=== PATIENT | female | born 1970 | race Caucasian/White ===

== ENCOUNTER 2022-10-03 07:05 | Inpatient (IN) | payer OTHER, SELFPAY ==
[2022-10-03] VITALS (10 sets, daily range): BP systolic 141–219; BP diastolic 81–130; PULSE 68–98; RESP 16–20; TEMP 36.4–36.9; O2SAT 96–98; BMI 38.0
--- NOTE | 2022-10-03 07:24 | PC.NURSE ---
pt hesitant to walk back to ER room. offered pt wheelchair, pt declined. Pt remains tearful, stating she wants to go home. pt remains cooperative and walked back to room with emotional support from her .
--- NOTE | 2022-10-03 07:37 | XR_ITS ---
WS: [id number] Portable AP upright chest, 10/03/2022 Clinical Data: chesst pain Comparison: None. Findings: No nodules, masses or effusions are seen. The heart is normal. The pulmonary vascularity is not increased. No pneumonia or pneumothorax is seen. The aortic arch and descending thoracic aorta s how mild tortuosity. XR/XR chest 1V portable 42241 Impression: Atherosclerosis.
--- NOTE | 2022-10-03 07:38 | ECG_ITS ---
[facility] Test Date: 2022-10-03 Pat Name: Noy Linares Department: Room: Gender: Female Unit Director: : 1970 Requested By: Michelet Ramirez Order Number: [id number] Pedro MD: Vanda Anderson M.D. Measurements Intervals [place] Rate: 57 P: 36 VA: 177 QRS: 26 QRSD: 89 T: 93 QT: 418 QTc: 407 Interpretive Statements SINUS BRADYCARDIA WITH OCCASIONAL SUPRAVENTRICULAR PREMATURE COMPLEXES NONSPECIFIC T-WAVE ABNORMALITY No previous ECG available for comparison Electronically Signed On 10-03-2022 16:55:10 DRIER AND EVAPORATOR OPERATOR by Vanda Anderson M.D. [id number]
--- NOTE | 2022-10-03 07:58 | ED.C_ITS ---
HPI - Psych General: Chief Complaint: ER Hold Stated Complaint: MHE Time Seen by Provider: 10/03/22 07:23 Source: patient Mode of arrival: ambulatory History of Present Illness: 52-year-old female presents emergency room complaining of anxiety. She arrives tearful. She was started yesterday I will I believe the Lexapro for anxiety. She took 1 dose last night. She feels frustrated and feels like a failure he has not wanted to engage outside of her house. She feels like she has not done a good job of taking care of her home. She had suicidal thoughts of hanging herself. She not previously been hospitalized. Years ago she was treated for hypertension and anxiety and was on medications but does not recall what they were she stopped them. [place] like she no longer needed them. Her mentioned there is been some other issues with her feeling depressed her parents had in the last couple of years which is very difficult for her. He also mentions several years ago she had a seizure-like activity and sounds like that may have been ultimately thought to be an anxiety attack rather than actual seizure but he is not completely clear. Patient is agreeable to hospitalization if needed. MD complaint: suicidal ideation and feels depressed Onset (ago): week(s) Duration: constant History of same: Yes Relieving factors: none Exacerbating factors: none Associated psychiatric symptoms: depression and suicidal ideation Associated symptoms: Reports depression and suicidal ideation Treatments prior to arrival: none If self harm: admits thoughts of self harm and has plan Review of Systems Const: Denies: fever(s), chills, body aches, change in appetite, fatigue or malaise ENMT: Denies: throat pain, ear or mastoid pain, nasal discharge or nasal congestion Card: Denies: chest pain, palpitations, irregular heart rhythm, edema, dyspnea on exertion or orthopnea Resp: Denies: dyspnea, productive cough or non-productive cough GI: Denies: abdominal pain, nausea, vomiting, hematemesis, coffee ground emesis, diarrhea, constipation, bloating, hematochezia or melena : Denies: flank pain, difficulty voiding, dysuria, urinary frequency or urinary urgency Skin/Breast: Denies: rash or pruritus Neuro: Denies: headache(s) Psych: Reports: anxiety, depression and suicidal ideation [facility] ED PFSH: Medical History (Updated 10/09/22 @ 13:52 by CHAZ Bryan ITCD) Generalized anxiety disorder HTN (hypertension) Hypertensive urgency Social History Smoking and tobacco status: never smoked Alcohol intake: never Physical Exam Const: COMMON NORMALS: no acute distress GENERAL APPEARANCE: cooperative and comfortable ORIENTATION/CONSCIOUSNESS: Yes awake, Yes oriented to person, Yes oriented to place and Yes oriented to time HENMT: COMMON NORMALS: normocephalic, atraumatic and hearing grossly normal bilaterally HEAD & SCALP: normocephalic and atraumatic Resp: COMMON NORMALS: normal respiratory effort, No retractions, No use of accessory muscles and clear to auscultation bilaterally AUSCULTATION: clear to auscultation bilaterally Cardio: COMMON NORMALS: regular rate, regular rhythm and No murmurs present (Cardio) RATE: regular rate RHYTHM: regular rhythm GI: COMMON NORMALS: Soft to palpation and No hepatosplenomegaly present AUSCULTATION: Yes normoactive bowel sounds PALPATION: Yes Soft to palpation, No Tenderness to palpation present (GI), No Guarding due to palpation present (GI) and Yes No hepatosplenomegaly present Extremity: COMMON NORMALS: normal to inspection, capillary refill normal, no clubbing, cyanosis or edema, no calf tenderness and no pedal edema Neuro: SENSORIUM/ORIENTATION: Yes oriented to person, Yes oriented to place and Yes oriented to time Skin: COMMON NORMALS: no rashes or lesions noted GENERAL SKIN EXAM: no rashes or lesions noted Course Vital Signs: Vital signs: Vital Signs Temperature 98.3 F 10/08/22 04:00 Pulse Rate 68 10/08/22 10:47 Respiratory Rate 17 10/08/22 10:47 Blood Pressure 155/94 10/08/22 10:47 Pulse Oximetry 95 10/08/22 10:47 Oxygen Delivery Me thod 10/08/22 04:00 MDM - Psych Medical Decision Making Patient given hydralazine and amlodipine for blood pressure. Basic labs completed. Discussed with the patient her condition she has a plan and recently has started on Lexapro discussed with Dr. Long he concurs will admit for suicidal ideation. May need consultation for blood pressure management will continue to observe blood pressure in the emergency room before she goes to the floor. Patient started on amlodipine and lisinopril at the time of admission. Medical Records I reviewed the patient's medical records. Lab Data I reviewed the patient's lab results. 10/08/22 05:16 10/08/22 09:09 Radiology Impressions Chest X-Ray 10/03/22 07:37 Impression: Atherosclerosis. Discharge Plan Discharge Patient Disposition: Admitted As Inpatient Admit Provider: Chance Long Clinical Impression: Generalized anxiety disorder, Suicidal ideation, HTN (hypertension) Condition: Stable Discharge Diet: As Directed Discharge Activity: Resume usual activity Coding Level of Care Code ED Magnaflux Operator for Chg Fwd Exam Detailed
[2022-10-03 08:57] LABS: Basophils # 0.1 10^3/uL (0.0-0.1); Basophils % 0.4 %; Eosinophils % 0.3 %; Hematocrit 42.2 % (37.0-47.0); Hemoglobin 13.2 g/dL (11.5-15.3); Lymphocytes # 1.1 10^3/uL (0.8-4.8); Lymphocytes % 8.1 %; Mean Corpuscular HGB Conc 31.3 g/dL (30.0-36.0); Mean Corpuscular Hemoglobin 26.8 pg (28.0-34.0); Mean Corpuscular Volume 85.8 fl (81-99); Monocytes % 7.3 %; Neutrophils # 11.26 10^3/uL (1.8-7.7); Neutrophils % 83.5 %; Nucleated Red Blood Cells % 0 %; Platelet Count 390 10^3/cmm (130-400); Red Blood Count 4.92 10^6/uL (4.1-5.3); White Blood Count 13.5 10^3/uL (4.0-10.0)
[2022-10-03] MEDS: hyDRALAzine 20 mg/mL INJ 1 mL IVP (09:01)
[2022-10-03] MEDS: amlodipine 10 mg Tablet PO (09:01)
[2022-10-03 09:15] LABS: Alanine Aminotransferase 33 U/L (0-33); Albumin Level 4.3 g/dL (3.5-5.2); Alkaline Phosphatase 104 U/L (35-105); Anion Gap 14.7 (5-19); Aspartate Amino Transferase 27 U/L (0-32); Blood Urea Nitrogen 13 mg/dL (6-20); Calcium 9.5 mg/dL (8.5-10.5); Carbon Dioxide 24 mmol/L (22-29); Chloride 104 mmol/L (98-107); Creatinine Clr Calc Pharmacy 151.8839; Globulin 3.7 g/dL (1.3-4.6); Glomerular Filtration Rate 129.6 mL/min (90-130); Glucose 105 mg/dL (65-115); Osmolality Calculated 288 mOsm/kg (285-295); Potassium 3.7 mmol/L (3.5-5.1); Sodium 139 mmol/L (136-145); Total Bilirubin 0.4 mg/dL (0.15-1.2)
[2022-10-03 09:16] LABS: Troponin(5th) Baseline 8 ng/L (0-10)
--- NOTE | 2022-10-03 09:43 | ECG_ITS ---
[facility] Test Date: 2022-10-03 Pat Name: Noy Linares Department: Room: Gender: Female Setter Machine: : 1970 Requested By: Michelet Ramirez Order Number: [id number] Pedro MD: Vanda Anderson M.D. Measurements Intervals [place] Rate: 77 P: 42 CO: 160 QRS: 49 QRSD: 92 T: 32 QT: 398 QTc: 451 Interpretive Statements SINUS RHYTHM NONSPECIFIC T-WAVE ABNORMALITY Compared to ECG 10/03/2022 08:17:27 Sinus bradycardia no longer present T-wave abnormality still present Electronically Signed On 10-03-2022 17:02:29 COLOR STRAINER by Vanda Anderson M.D. [id number]
[2022-10-03 11:18] LABS: Troponin 5 2HR 8.63 ng/L (0-10)
[2022-10-03 12:12] LABS: Troponin 5 2HR Delta 0.63 ABS# (0-10)
[2022-10-03] MEDS: enalaprilat 1.25 mg/mL Inj IVP (12:44)
[2022-10-03] MEDS: labetalol 5 mg/mL SDV 20mL 10 MG IVP (12:44)
[2022-10-03] MEDS: LORazepam 2 mg/mL INJ 1 mL IVP (13:53)
[2022-10-03 15:37] LABS: Troponin 5 6HR 12.88 ng/L (0-10)
[2022-10-03 15:44] LABS: Troponin 5 6HR Delta 4.88 ng/L (0-12)
[2022-10-03] MEDS: trazodone 50 mg Tablet PO (19:33)
[2022-10-03] MEDS: escitalopram 10 mg Tablet PO (19:33)
[2022-10-03] MEDS: metoprolol succinate ER (24 HR) 25 mg Tablet PO (19:34)
[2022-10-04 02:56] VITALS: BP 167/95; PULSE 76; RESP 18; TEMP 36.6; O2SAT 97
[2022-10-04] MEDS: loperamide 2 mg Capsule PO (06:41)
[2022-10-04] MEDS: amlodipine 10 mg Tablet PO (08:46)
[2022-10-04] MEDS: lisinopril 20 mg Tablet PO (08:46)
--- NOTE | 2022-10-04 13:07 | W.PM.NPUH&PS ---
Providers/Chief Complaint Admitting Physician: Chance Long MD Primary Care Provider: FRANCES Hudson Chief Complaint: MHE HPI NPU History of Present Illness Noy Linares is a 52 year old female who presented to the emergency department with the following report: Chief Complaint: Psychiatric Symptoms Stated Complaint: MHE Time Seen by Provider: 10/03/22 07:23 Source: patient Mode of arrival: ambulatory History of Present Illness: 52-year-old female presents emergency room complaining of anxiety. She arrives tearful. She was started yesterday I will I believe the Lexapro for anxiety. She took 1 dose last night. She feels frustrated and feels like a failure he has not wanted to engage outside of her house. She feels like she has not done a good job of taking care of her home. She had suicidal thoughts of hanging herself. She not previously been hospitalized. Years ago she was treated for hypertension and anxiety and was on medications but does not recall what they were she stopped them. [place] like she no longer needed them. Her mentioned there is been some other issues with her feeling depressed her parents had in the last couple of years which is very difficult for her. He also mentions several years ago she had a seizure-like activity and sounds like that may have been ultimately thought to be an anxiety attack rather than actual seizure but he is not completely clear. Patient is agreeable to hospitalization if needed. complaint: suicidal ideation and feels depressed Onset (ago): week(s) Duration: constant History of same: Yes Relieving factors: none Exacerbating factors: none Associated psychiatric symptoms: depression and suicidal ideation Associated symptoms: Reports depression and suicidal ideation Treatments prior to arrival: none If self harm: admits thoughts of self harm and has plan. The patient was admitted to the neuropsychiatric unit for definitive treatment of those issues. She is currently taking an anti anxiety and her blood pressure medication. She presents today reporting she was feeling ?consumed? and overwhelmed. She has never been psychiatrically hospitalized, has went to Behavioral Health once in her life, and has been on some psychiatric medication. She denies tobacco, alcohol, marijuana or any other illicit drug use. She has never had drug and alcohol treatment or drug and alcohol related charges. She reports she has had similar rough times around when her son was first born over 30 years ago and when she lost both parents in a car accident with symptoms of feelings of helplessness, hopelessness, worthlessness, problems with sleeping, and suicidal ideation. She endorses worrying about her children and grandchildren in a normal way and denies any issues with social anxiety. She denies any repetitive behaviors. She endorses some symptoms of PTSD. Of her outpatient evaluation from [facility] from 2009 is included below for context and historical data. Psychiatric History: As above. Substance Abuse History: As above. Family History: She reports mental health issues on her father?s side of the family, addiction issues with her brother, and denies any suicide attempts or completions on either side of the family. Developmental History: She denies any issues with her or , learned to walk and talk and met her developmental milestones on time and denies any need for speech therapy, learning support, emotional support or special education classes. Psychosocial History: She reports her parents were together when she was born and remained together until they passed. She had 5 siblings of whom one passed who are products of the same union. She described her childhood as fairly good and denies emotional, physical or sexual abuse. She denies CYS involvement. She denies any other traumatic events. She graduated high school. She endorses being heterosexual with her longest relationship being 34 years. She has been once, has 3 children, has never been in the and endorses being rastafari. 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 She currently lives in a house with her . Legal History: Denied. Medical History: She is allergic to penicillin and latex. She denies any medical issues. She is beginning menopause. Per her 01/24/2010 [facility] outpatient psychiatric evaluation: Time: In- 1015 Out- 1045 Identification: Noy is a [age] year old white female who was seen after referral from her primary provider, Dr. Romero and initial assessment. Informants: Noy is seen with her [id number] and records are reviewed. Chief Complaint: ?I get shaky when I cut my meds down?. History: Noy is reporting that she has been having increased anxiety. She gets feeling shaky, worried and finding herself having episodes where she is unable to manage. She has had to stop work after being able to manage for over ten years. She reports some stressors including being changed to nightshift and her now being an over the road wireless sales consultant that keeps him away from home longer periods of time. She reports she has tried Prozac and bupropion without benefit. She has had Ativan which has been increased now to 1 mg four times a day. She states that when she is not getting a dose, she will have some shakiness physically. She is also reporting some medical symptoms including a history of anemia, although she is not sure what her levels were. She states she did have a normal thyroid, but she is complaining with her hair coming out easily. No report of significant skin changes. Past History: No prior psychiatric hospitalizations. She was seen once psychiatrically when her parents , but reports she was able to work through those issues. Medical History: Allergies reported to hepatitis B injections, as well as penicillin and latex. Currently she is denying having any acute medical problems or taking medical medications. She does report an approximate forty-three pound weight loss without attempting to lose weight. Family History: Medical history for high blood pressure. Her current blood pressure is reported approximately 133/88. Psychiatric history was denied. Addictive Behavior/Dependence: No history of abuse or dependence of prescription medications, substances or alcohol. Abusive/Traumatic Circumstances: None reported. Psychosocial: Childhood- She was born in [place] and raised in [place]. Her parents returned to [place] when she was a senior. They are currently . She has two brothers and one sister. She describes family relationships as ?MMK?. Environment and Home- Currently lives with her spouse and children, one who is out working and two are finishing high school. She reports housing is adequate. Activities of Daily Living- She is able to care for herself and manage her funds. Family Circumstances- She has some concerns as one child has diabetes and is gone as noted. Social and Peer Groups- She states she has lots of people and friends that she talks to. Sexual Orientation- Heterosexual by report. Educational- Graduated high school. Extra Curricular- None. Quaker and Spiritual- She states none. Leisure and Recreational- She states none at this time. Financial- Incomes is from salary she had been getting and reports was adequate. 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. She is having some struggle with a claims supervisor, but has been at the job for ten years. - None. Legal- None. Meds NPU Home Medications Medication Instructions Recorded Confirmed Last Taken Type hydroxyzine HCl 25 mg tablet 25 mg PO Q8H PRN anxiety #30 tabs 09/25/22 10/03/22 Unknown Rx aspirin-caffeine 845 mg-65 mg oral 1 ea PO DAILY PRN Headache 10/03/22 10/03/22 Unknown History powder packet (BC Pain Relief) escitalopram oxalate 10 mg tablet 10 mg PO BEDTIME 10/03/22 10/03/22 10/02/22 History first dose metoprolol succinate 25 mg 25 mg PO BEDTIME 10/03/22 10/03/22 10/02/22 20:00 History tablet,extended release 24 hr first dose of 25mg Allergies Allergy/AdvReac Type Severity Reaction Status Date / Time Latex, Natural Rubber Allergy ALGY-Rash Verified 10/03/22 08:21 Penicillins Allergy ALGY-Hives Verified 10/03/22 08:21 HEPATITIS C VACCINE Allergy Intermediate ALGY-Rash Uncoded 09/25/22 18:13 PFSH NPU PFSH: Medical History (Updated 10/05/22 @ 08:36 by Chance Long MD) Generalized anxiety disorder HTN (hypertension) Social History (Updated 10/03/22 @ 08:02 by Michelet Romero DO) Smoking and tobacco status: never smoked Alcohol intake: never Mental Status Exam MSE Comments: This is an overweight versus obese white female with thinning hair in hospital scrubs with adequate grooming and limited eye contact. No abnormal movements except for mild psychomotor retardation. Cooperative with exam in mild distress. Speech was normal rate and volume. Mood described as good, affect is congruent. Thought process, organized. Thought content: patient denies suicidal or homicidal ideation, no delusions reported or noted and denies any auditory or visual hallucinations. Attention and concentration are intact and memory appeared reliable but none were formally tested. She is alert and oriented times three. Insight and judgment are fair. Impulse control is fair. Vitals/I&O/Wt Last Vital Signs Temp 98 F 10/04/22 13:59 Pulse 79 10/04/22 13:59 Resp 16 10/04/22 13:59 BP 129/74 10/04/22 13:59 Pulse Ox 99 10/04/22 13:59 O2 Del Method 10/04/22 13:59 Weight last 48 hrs Weight 100.698 kg Data NPU 10/03/22 08:47 10/03/22 08:47 A&P Assessment and plan (1) Generalized anxiety disorder: (2) HTN (hypertension): (3) Suicidal ideation: (4) Adjustment disorder with mixed disturbance of emotions and conduct: Plan This is a 52 year old woman with a history of depression related to significant moments in her life and genetic loading for mental health issues who presents with recent depression and suicidal ideation reporting she is doing better and open to changes in her medication at this time. 1. Continue current medications 2. Encourage individual, group and milieu therapy 3. Continue q-15 minute check for safety 4. We will get collateral information from family and consider discharge tomorrow given she is not on a hold if she continues to endorse wanting to leave. Involuntary Hold Information 96 Hour Hold: 96 Hour Involuntary Admission: No Attestations NPU Medical Necessity Statement*: Inpatient hospitalization is medically necessary and the clinically appropriate intervention at this time. We will monitor medications and make changes as indicated. Patient will be in the hospital for over two midnights. Likely length of stay is 2-4 days. However patient expressing interest in discharge and will evaluate for safety. Coding Level of Care Code Acute Wheel Polisher for Chg Fwd Diagnoses Generalized anxiety disorder F41.1 HTN (hypertension) I10 Suicidal ideation R45.851 Adjustment disorder with mixed disturbance of emotions and conduct F43.25
[2022-10-04 13:59] VITALS: BP 129/74; PULSE 79; RESP 16; TEMP 36.6; O2SAT 99
[2022-10-04] MEDS: escitalopram 10 mg Tablet PO (20:28)
[2022-10-04] MEDS: metoprolol succinate ER (24 HR) 25 mg Tablet PO (20:28)
[2022-10-04 20:34] VITALS: BP 164/101; PULSE 82; RESP 18; TEMP 36.7; O2SAT 95
[2022-10-05] MEDS: lisinopril 20 mg Tablet PO (07:54)
[2022-10-05] MEDS: amlodipine 10 mg Tablet PO (07:54)
[2022-10-05 14:00] VITALS: BP 172/98; PULSE 82; RESP 18; TEMP 36.6; O2SAT 96
--- NOTE | 2022-10-05 19:15 | P.NPUPN_ITS ---
Subjective NPU Subjective: Patient presented today reporting that she felt like she would probably be good at home. Her came in and were able to talk about his take on the situation as well as what resources they had in place. We agreed that the benefit of having the treatment team get connected with resources and make sure she had appointments will be quite valuable and so she agreed that she would stay an additional day. Mental Status Exam MSE Comments: This is an overweight versus obese white female with thinning hair in hospital scrubs with adequate grooming and limited eye contact. No abnormal movements except for mild psychomotor retardation. Cooperative with exam in mild distress. Speech was normal rate and volume. Mood described as good, affect is congruent, but anxious. Thought process, organized. Thought content: patient denies suicidal or homicidal ideation, no delusions reported or noted and denies any auditory or visual hallucinations. Attention and concentration are intact and memory appeared reliable but none were formally tested. She is alert and oriented times three. Insight and judgment are fair. Impulse control is fair. Vitals/I&O/Wt Last Vital Signs Temp 98.4 F 10/05/22 19:25 Pulse 78 10/05/22 19:25 Resp 18 10/05/22 19:25 BP 184/128 10/05/22 19:25 Pulse Ox 97 10/05/22 19:25 O2 Del Method 10/04/22 13:59 Weight last 48 hrs Weight 101.151 kg Data NPU 10/03/22 08:47 10/03/22 08:47 A&P Assessment and plan (1) Generalized anxiety disorder: (2) HTN (hypertension): (3) Suicidal ideation: (4) Adjustment disorder with mixed disturbance of emotions and conduct: Plan This is a 52 year old woman with a history of depression related to significant moments in her life and genetic loading for mental health issues who presents with recent depression and suicidal ideation reporting she is doing better and open to changes in her medication at this time. 1. Continue current medications 2. Encourage individual, group and milieu therapy 3. Continue q-15 minute check for safety 4. We will get connected with outpatient resources and likely discharge tomorrow. 5. If blood pressure stays elevated may get consult prior to discharge. Involuntary Hold Information 96 Hour Hold: 96 Hour Involuntary Admission: No Attestations NPU Medical Necessity Statement*: Inpatient hospitalization is medically necessary and the clinically appropriate intervention at this time. We will monitor medications and make changes as indicated. Likely length of stay is 1-3 days. Coding Level of Care Code Acute Process Supervisor for Chg Fwd Diagnoses Generalized anxiety disorder F41.1 HTN (hypertension) I10 Suicidal ideation R45.851 Adjustment disorder with mixed disturbance of emotions and conduct F43.25
[2022-10-05] MEDS: metoprolol succinate ER (24 HR) 25 mg Tablet PO (19:21)
[2022-10-05] MEDS: escitalopram 10 mg Tablet PO (19:21)
[2022-10-05 19:25] VITALS: BP 184/128; PULSE 78; RESP 18; TEMP 36.9; O2SAT 97
[2022-10-05 20:32] VITALS: BP 187/102
[2022-10-05 20:56] VITALS: BP 187/102
[2022-10-05] MEDS: cloNIDine 0.1 mg Tablet PO (20:56)
--- NOTE | 2022-10-05 21:01 | PC.NURSE ---
At 1924, Pt noted with BP of 184/128. HS meds of Toprol XL 25mg given. Recheck at 2031 of 187/102. Dr Long notified and orders received for Clonidine 0.1mg Q4H PRN systolic>160/dystolic>100. Also order for hospitalist consult for high blood pressures. Attempt to contact Dr Lawson X2 made.
[2022-10-05 22:00] VITALS: BP 172/94
--- NOTE | 2022-10-05 22:00 | PC.NURSE ---
recheck of pt's BP, resulted of 172/94.
[2022-10-06] VITALS (11 sets, daily range): BP systolic 151–196; BP diastolic 82–133; PULSE 77–82; RESP 16; TEMP 36.8; O2SAT 94–98
[2022-10-06] MEDS: cloNIDine 0.1 mg Tablet PO (03:09)
--- NOTE | 2022-10-06 03:10 | PC.NURSE ---
pt noted with BP of 196/133, clonidine 0.1mg po given.
--- NOTE | 2022-10-06 04:18 | PC.NURSE ---
BP rechecked, 167/82 at this time.
[2022-10-06 06:01] LABS: Amphetamines Screen Urine Negative (Negative); Barbiturates Screen Urine Negative (Negative); Benzodiazepines Screen Urine Negative (Negative); Cocaine Screen Urine Negative (Negative); Opiate Screen Urine Negative (Negative); PCP Screen Urine Negative (Negative); THC Screen Urine Negative (Negative)
[2022-10-06] MEDS: lisinopril 20 mg Tablet PO ×2 (08:22→11:24)
[2022-10-06] MEDS: hyDRALAzine 25 mg Tablet PO (08:22)
[2022-10-06] MEDS: amlodipine 10 mg Tablet PO (08:22)
--- NOTE | 2022-10-06 11:23 | PM.CONSULT ---
Providers/Reason For Consult Consulting Physician/Specialty*: Hospitalist Reason for Consult*: Hypertension Attending Physician: Chance Long MD Primary Care Provider: FRANCES Hudson History of Present Illness History of Present Illness Noy Linares is a 52 year old female who presents stress unit, does not take anything for her blood pressure at home, hospital service has been requested to optimize antihypertensive regimen before her discharge. Patient is stating that she does have a distal blood pressure cuff but she is not sure whether it is working properly, when I asked her what is she takes for her blood pressure she stated weed sometimes. No previous history of coronary disease, CHF, thyroid abnormalities, drug screen negative Currently she is getting amlodipine, lisinopril, hydralazine I have added hydrochlorothiazide Blood pressure has been fluctuating between 151 to 185mmhg that might delay discharge from the unit Review of Systems Const: Denies: fever(s) Eyes: Denies: change in vision ENMT: Denies: throat pain Card: Denies: chest pain Resp: Denies: dyspnea GI: Denies: abdominal pain : Denies: flank pain Musc: Denies: neck pain Skin/Breast: Denies: rash Neuro: Denies: headache(s) Psych: Denies: anxiety Endo: Denies: polyuria Jovanny/Lymph: Denies: easy bruising All/Imm: Denies: urticaria Medications/Allergies Home Medications Medication Instructions Recorded Confirmed Last Taken Type hydroxyzine HCl 25 mg tablet 25 mg PO Q8H PRN anxiety #30 tabs 09/25/22 10/03/22 Unknown Rx aspirin-caffeine 845 mg-65 mg oral 1 ea PO DAILY PRN Headache 10/03/22 10/03/22 Unknown History powder packet (BC Pain Relief) amlodipine 10 mg tablet 10 mg PO DAILY #30 tabs 10/06/22 Unknown Rx escitalopram oxalate 10 mg tablet 10 mg PO BEDTIME 30 days #30 tabs 10/06/22 Unknown Rx hydralazine 25 mg tablet 25 mg PO BID #60 tabs 10/06/22 Unknown Rx hydrochlorothiazide 25 mg tablet 25 mg PO QAM #30 tabs 10/06/22 Unknown Rx lisinopril 20 mg tablet 40 mg PO DAILY #60 tabs 10/06/22 Unknown Rx metoprolol succinate 25 mg 25 mg PO BEDTIME 30 days #30 tabs 10/06/22 Unknown Rx tablet,extended release 24 hr Allergies Allergy/AdvReac Type Severity Reaction Status Date / Time Latex, Natural Rubber Allergy ALGY-Rash Verified 10/03/22 08:21 Penicillins Allergy ALGY-Hives Verified 10/03/22 08:21 HEPATITIS C VACCINE Allergy Intermediate ALGY-Rash Uncoded 09/25/22 18:13 Current Medications Generic Name Dose Route Start Last Admin Trade Name Freq PRN Reason Stop Dose Admin Amlodipine Besylate 10 mg 10/04/22 09:00 10/06/22 08:22 Amlodipine 10 Mg Tablet PO 10 mg DAILY HAYDEE Administration Escitalopram Oxalate 10 mg 10/03/22 21:00 10/05/22 19:21 Escitalopram 10 Mg Tablet PO 10 mg BEDTIME HAYDEE Administration Hydralazine HCl 25 mg 10/06/22 09:00 10/06/22 08:22 Hydralazine 25 Mg Tablet PO 25 mg TID HAYDEE Administration Lisinopril 20 mg 10/06/22 09:00 10/06/22 08:22 Lisinopril 20 Mg Tablet PO 20 mg DAILY HAYDEE Administration Loperamide HCl 2 mg 10/03/22 15:00 10/04/22 06:41 Loperamide 2 Mg Capsule PO 2 mg Q6H PRN Administration DIARRHEA Metoprolol Succinate 25 mg 10/03/22 21:00 10/05/22 19:21 Metoprolol Succinate Er (24 Hr) 25 Mg Tablet PO 25 mg BEDTIME HAYDEE Administration Trazodone HCl 50 mg 10/03/22 15:00 10/03/22 19:33 Trazodone 50 Mg Tablet PO 50 mg BEDTIME PRN Administration SLEEP PFSH Acute PFSH: Medical History Generalized anxiety disorder HTN (hypertension) Social History Smoking and tobacco status: never smoked Alcohol intake: never Female Reproductive History: Date of last menstrual period: 04/28/22 Vitals/I&O/Wt Last Vital Signs Temp 98.2 F 10/06/22 03:05 Pulse 77 10/06/22 03:05 Resp 16 10/06/22 03:05 BP 151/84 10/06/22 10:35 Pulse Ox 94 10/06/22 03:05 O2 Del Method 10/04/22 13:59 Weight last 48 hrs Weight 101.151 kg Physical Exam Narrative: Morbid obese female Unkept appearance Awake and alert Nonfocal neuro exam S1, S2 No audible stridor or wheezing Pleasant and cooperative No sign of cellulitis Calm Data 10/03/22 08:47 10/03/22 08:47 A&P Assessment and plan (1) Adjustment disorder with mixed disturbance of emotions and conduct: (2) Suicidal ideation: (3) Generalized anxiety disorder: (4) HTN (hypertension): Plan Hypertensive urgency Stage III hypertension She will need at least 3-4 antihypertensive regimen including a diuretic I would recommend amlodipine 10 mg, chlorthalidone, lisinopril, hydralazine, metoprolol, hydralazine 50 mg 3 times a day Requested TSH, drug screen negative She will need close PCP follow-up appointment Will follow along Consult Attestations Medical Necessity Statement: As per stress unit Time Spent in Patient Care: 30 Coding Level of Care Code Acute Clinical Resource Manager for Casandra Fwd Diagnoses Adjustment disorder with mixed disturbance of emotions and conduct F43.25 Suicidal ideation R45.851 Generalized anxiety disorder F41.1 HTN (hypertension) I10
[2022-10-06] MEDS: hydroCHLOROthiazide 25 mg Tablet PO (11:24)
[2022-10-06] MEDS: hyDRALAzine 25 mg Tablet 50 MG PO ×2 (14:39→19:50)
[2022-10-06] MEDS: chlorthalidone 25 mg Tablet PO (14:39)
--- NOTE | 2022-10-06 18:58 | P.NPUPN_ITS ---
Subjective NPU Subjective: Patient presented today with continued improvement in her mood. She continues to report that she is adjusting well to the medication. However unfortunately her blood pressures continue to be problematic. The hospitalist who continue to consult expressed concern about her blood pressure is going back in the 180s. We discussed the medication adjustments that were made and a desire to have her blood pressures in the 150s or lower prior to discharge was which were not met and additional medication adjustments were made to her blood pressure medications and we will focus on hopefully tomorrow for discharge. We discussed the fact that her blood pressures have likely been running like this while she is at home and this is very dangerous. Mental Status Exam MSE Comments: This is an overweight versus obese white female with thinning hair in hospital scrubs with adequate grooming and limited eye contact. No abnormal movements except for mild psychomotor retardation. Cooperative with exam in mild distress. Speech was normal rate and volume. Mood described as good, affect is congruent, but anxious. Thought process, organized. Thought content: patient denies suicidal or homicidal ideation, no delusions reported or noted and denies any auditory or visual hallucinations. Attention and con centration are intact and memory appeared reliable but none were formally tested. She is alert and oriented times three. Insight and judgment are fair. Impulse control is fair. Vitals/I&O/Wt Last Vital Signs Temp 98.3 F 10/06/22 20:41 Pulse 82 10/06/22 20:41 Resp 16 10/06/22 20:41 BP 163/96 10/06/22 20:41 Pulse Ox 98 10/06/22 20:41 O2 Del Method 10/04/22 13:59 Data NPU 10/03/22 08:47 10/03/22 08:47 A&P Assessment and plan (1) Generalized anxiety disorder: (2) HTN (hypertension): (3) Suicidal ideation: (4) Adjustment disorder with mixed disturbance of emotions and conduct: Plan This is a 52 year old woman with a history of depression related to significant moments in her life and genetic loading for mental health issues who presents with recent depression and suicidal ideation reporting she is doing better and open to changes in her medication at this time. 1. Continue current medications 2. Encourage individual, group and milieu therapy 3. Continue q-15 minute check for safety 4. We will get connected with outpatient resources and likely discharge tomorrow. 5. Appreciate hospitalists consult and will follow directions as far as safety for discharge given her elevated blood pressures. Hospitalist making adjustments as indicated for hypertensive control. Involuntary Hold Information 96 Hour Hold: 96 Hour Involuntary Admission: No Attestations NPU Medical Necessity Statement*: Inpatient hospitalization is medically necessary and the clinically appropriate intervention at this time. We will monitor medications and make changes as indicated. Likely length of stay is 1-2 days. Coding Level of Care Code Acute Unified Communications Engineer for g Fwd Diagnoses Generalized anxiety disorder F41.1 HTN (hypertension) I10 Suicidal ideation R45.851 Adjustment disorder with mixed disturbance of emotions and conduct F43.25
[2022-10-06] MEDS: escitalopram 10 mg Tablet PO (19:50)
[2022-10-06] MEDS: metoprolol succinate ER (24 HR) 25 mg Tablet PO (19:51)
[2022-10-07] VITALS (10 sets, daily range): BP systolic 114–184; BP diastolic 75–119; PULSE 81–100; RESP 15–17; TEMP 36.3–36.7; O2SAT 97–98
[2022-10-07] MEDS: hyDRALAzine 25 mg Tablet 50 MG PO ×2 (04:40→09:11)
[2022-10-07] MEDS: chlorthalidone 25 mg Tablet PO (09:08)
[2022-10-07] MEDS: lisinopril 20 mg Tablet 40 MG PO (09:08)
[2022-10-07] MEDS: amlodipine 10 mg Tablet PO (09:08)
--- NOTE | 2022-10-07 09:17 | PC.NURSE ---
Orders received to increase pt's hydralazine to 100 mg po TID. casino shift manager staff had given the pt's 0900 dose of hydralazine early due to pt's elevated bp. Pt received an additional 50 mg Hydralazine to equal 100 mg for the 0900 dose. Clarified this with Dr. Long prior to giving it.
--- NOTE | 2022-10-07 09:33 | PC.NURSE ---
Dr. Causey notified of pt's continued elevated bp. Medications reviewed including AM meds given including the additional 50 mg Hydralazine to equal 100 mg total for 0900 dose as pt had already received 50 mg Hydralazine at 0447. Informed Dr. Long would also be contacting him. Dr. Causey said if pt's blood pressure remained elevated at noon, he would consider moving her to med-surg.
--- NOTE | 2022-10-07 10:29 | PC.NURSE ---
Received orders for Spironolactone 50 mg po daily. BP checked prior to giving it. 137/[address] Causey notified. Instructed to hold the spironolactone for now. Recheck bp at noon and 2pm. If bp remains elevated, transfer pt to med-surg. If okay, can discharge. Pt and Dr. Long notified.
--- NOTE | 2022-10-07 10:50 | PC.NURSE ---
Pt's bp at 0855: right arm 178/105 with 91 pulse; left arm 175/119 with 86 pulse.
--- NOTE | 2022-10-07 11:28 | PM.PN ---
Subjective Subjective: Patient started experiencing dizziness when her blood pressure was around 130s hence decision was made to monitor her blood pressure on [facility] Vitals/I&O/Wt Last Vital Signs Temp 97.4 F L 10/07/22 04:42 Pulse 100 10/07/22 10:15 Resp 16 10/07/22 04:42 BP 137/81 10/07/22 10:15 Pulse Ox 98 10/07/22 04:42 O2 Del Method 10/04/22 13:59 Physical Exam Narrative: Awake and alert Nonfocal neuro exam EOMI, PERRLA GCS 15 Pleasant cooperative Pleasant cooperative S1, S2 Morbidly obese On room air Abdomen soft Data 10/03/22 08:47 10/03/22 08:47 A&P Assessment and plan (1) Hypertensive urgency: (2) Adjustment disorder with mixed disturbance of emotions and conduct: (3) Suicidal ideation: (4) Generalized anxiety disorder: (5) HTN (hypertension): Plan Hypertensive urgency Patient was hypertensive this morning however after getting a.m. antihypertensive regimen blood pressure dropped down to 137/[address] Long to transfer this patient to [facility] if by 2:00 she remains hypertensive, otherwise I do believe she will need some time to reach good levels and her serum of all antitussive regimen we have recommended, she can follow-up with PCP and get discharged today from the stress unit if by noon blood pressure remained stable In case she remains hypertensive I will admit to [facility] add spironolactone and treat for resistant hypertension Attestations Medical Necessity Statement*: Continue medical management Time Spent in Patient Care: 15 Coding Level of Care Code Acute Equipment Specialist for g Fwd Diagnoses Hypertensive urgency I16.0 Adjustment disorder with mixed disturbance of emotions and conduct F43.25 Suicidal ideation R45.851 Generalized anxiety disorder F41.1 HTN (hypertension) I10
--- NOTE | 2022-10-07 11:53 | W.PM.NPUDCS ---
Diagnoses at Discharge Discharge Diagnosis (1) Generalized anxiety disorder: Status: Acute (2) HTN (hypertension): Status: Acute (3) Suicidal ideation: Status: Resolved (4) Adjustment disorder with mixed disturbance of emotions and conduct: Status: Acute Reason for Visit Reason for Visit: MHE Brief History: History of Present Illness Noy Linares is a 52 year old female who presented to the emergency department with the following report: Chief Complaint: Psychiatric Symptoms Stated Complaint: MHE Time Seen by Provider: 10/03/22 07:23 Source: patient Mode of arrival: ambulatory History of Present Illness: 52-year-old female presents emergency room complaining of anxiety. She arrives tearful. She was started yesterday I will I believe the Lexapro for anxiety. She took 1 dose last night. She feels frustrated and feels like a failure he has not wanted to engage outside of her house. She feels like she has not done a good job of taking care of her home. She had suicidal thoughts of hanging herself. She not previously been hospitalized. Years ago she was treated for hypertension and anxiety and was on medications but does not recall what they were she stopped them. [place] like she no longer needed them. Her mentioned there is been some other issues with her feeling depressed her parents had in the last couple of years which is very difficult for her. He also mentions several years ago she had a seizure-like activity and sounds like that may have been ultimately thought to be an anxiety attack rather than actual seizure but he is not completely clear. Patient is agreeable to hospitalization if needed. MD complaint: suicidal ideation and feels depressed Onset (ago): week(s) Duration: constant History of same: Yes Relieving factors: none Exacerbating factors: none Associated psychiatric symptoms: depression and suicidal ideation Associated symptoms: Reports depression and suicidal ideation Treatments prior to arrival: none If self harm: admits thoughts of self harm and has plan. The patient was admitted to the neuropsychiatric unit for definitive treatment of those issues. She is currently taking an anti anxiety and her blood pressure medication. She presents today reporting she was feeling ?consumed? and overwhelmed. She has never been psychiatrically hospitalized, has went to Behavioral Health once in her life, and has been on some psychiatric medication. She denies tobacco, alcohol, marijuana or any other illicit drug use. She has never had drug and alcohol treatment or drug and alcohol related charges. She reports she has had similar rough times around when her son was first born over 30 years ago and when she lost both parents in a car accident with symptoms of feelings of helplessness, hopelessness, worthlessness, problems with sleeping, and suicidal ideation. She endorses worrying about her children and grandchildren in a normal way and denies any issues with social anxiety. She denies any repetitive behaviors. She endorses some symptoms of PTSD. Of her outpatient evaluation from [facility] from 2009 is included below for context and historical data. Psychiatric History: As above. Substance Abuse History: As above. Family History: She reports mental health issues on her father?s side of the family, addiction issues with her brother, and denies any suicide attempts or completions on either side of the family. Developmental History: She denies any issues with her or , learned to walk and talk and met her developmental milestones on time and denies any need for speech therapy, learning support, emotional support or special education classes. Psychosocial History: She reports her parents were together when she was born and remained together until they passed. She had 5 siblings of whom one passed who are products of the same union. She described her childhood as fairly good and denies emotional, physical or sexual abuse. She denies CYS involvement. She denies any other traumatic events. She graduated high school. She endorses being heterosexual with her longest relationship being 34 years. She has been once, has 3 children, has never been in the and endorses being confucianism. 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 She currently lives in a house with her . Legal History: Denied. Medical History: She is allergic to penicillin and latex. She denies any medical issues. She is beginning menopause. Per her 01/24/2010 [facility] outpatient psychiatric evaluation: Time: In- 1015 Out- 1045 Identification: Noy is a [age] year old white female who was seen after referral from her primary provider, Dr. Romero and initial assessment. Informants: Noy is seen with her [id number] and records are reviewed. Chief Complaint: ?I get shaky when I cut my meds down?. History: Noy is reporting that she has been having increased anxiety. She gets feeling shaky, worried and finding herself having episodes where she is unable to manage. She has had to stop work after being able to manage for over ten years. She reports some stressors including being changed to nightshift and her now being an over the road inside trucker that keeps him away from home longer periods of time. She reports she has tried Prozac and bupropion without benefit. She has had Ativan which has been increased now to 1 mg four times a day. She states that when she is not getting a dose, she will have some shakiness physically. She is also reporting some medical symptoms including a history of anemia, although she is not sure what her levels were. She states she did have a normal thyroid, but she is complaining with her hair coming out easily. No report of significant skin changes. Past History: No prior psychiatric hospitalizations. She was seen once psychiatrically when her parents , but reports she was able to work through those issues. Medical History: Allergies reported to hepatitis B injections, as well as penicillin and latex. Currently she is denying having any acute medical problems or taking medical medications. She does report an approximate forty-three pound weight loss without attempting to lose weight. Family History: Medical history for high blood pressure. Her current blood pressure is reported approximately 133/88. Psychiatric history was denied. Addictive Behavior/Dependence: No history of abuse or dependence of prescription medications, substances or alcohol. Abusive/Traumatic Circumstances: None reported. Psychosocial: Childhood- She was born in [place] and raised in [place]. Her parents returned to [place] when she was a senior. They are currently . She has two brothers and one sister. She describes family relationships as ?MMK?. Environment and Home- Currently lives with her spouse and children, one who is out working and two are finishing high school. She reports housing is adequate. Activities of Daily Living- She is able to care for herself and manage her funds. Family Circumstances- She has some concerns as one child has diabetes and is gone as noted. Social and Peer Groups- She states she has lots of people and friends that she talks to. Sexual Orientation- Heterosexual by report. Educational- Graduated high school. Extra Curricular- None. Alevism and Spiritual- She states none. Leisure and Recreational- She states none at this time. Financial- Incomes is from salary she had been getting and reports was adequate. Vocational- She worked in house keeping at [employer]. 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 - None. Legal- None. Hospital Course Hospital Course Patient slowly acclimated to the individual, group and milieu therapies provided.?She had significant stressors and depression when she presented. We monitored her as she had recent initiation of Lexapro 10 mg po q daily. She worked with the treatment team to find appropriate discharge options and follow-up. They were able to accomplish that. She had significant improvement during this admission and she was able to contract for safety, outside of the hospital prior to discharge.?? However her blood pressure was unmanageable and instead of discharge she was held an extra day, and with continued hypertension she was transferred to [facility]. With history as below per hospitalists. Per Hospitalist: Hospitalist service was consulted for hypertensive urgency management, patient was in neuropsychiatric unit for suicidal ideation generalized anxiety and adjustment disorder management. Her TSH is normal, patient has not taken any antihypertensive until this visit. Patient is stating that she was using weed to control her symptoms. Her blood pressure has been fluctuating between 150-190 mmHg, she was given optimal dose of amlodipine, lisinopril, metoprolol and thiazide. She was given hydralazine 100 mg 3 times a day as well which dropped her blood pressure to 130s which made her dizzy. No signs of stroke or press syndrome, she was monitored on [facility] for 1 extra day. She will need close follow-up with PCP for her hypertensive regimen optimization. I do believe with all the medications we are starting they will achieve optimal serum level in the next couple of days and help her control blood pressure her potassium has been normal. Discharge Summary: At the time of discharge, she denied psychosis or lethality.? Mood and anxiety were well managed.? Patient endorsed a plan to avoid all drugs of abuse and follow-up with the aftercare recommendations of the treatment team.? Patient was evaluated and deemed to be absent credible lethality, and was voluntary and no longer wanting inpatient hospitalization, so she was cleared for discharge to be determined by Hospitalist getting blood pressures under control. Involuntary Hold Information 96 Hour Hold: 96 Hour Involuntary Admission: No Mental Status Exam MSE Comments: This is an overweight versus obese white female with thinning hair in hospital scrubs with adequate grooming and limited eye contact. No abnormal movements except for mild psychomotor retardation. Cooperative with exam in mild distress. Speech was normal rate and volume. Mood described as good, affect is congruent, but anxious. Thought process, organized. Thought content: patient denies suicidal or homicidal ideation, no delusions reported or noted and denies any auditory or visual hallucinations. Attention and concentration are intact and memory appeared reliable but none were formally tested. She is alert and oriented times three. Insight and judgment are fair. Impulse control is fair. Discharge Data Studies Completed and Pending: Completed Studies During Hospitalization Category Date Time Status XR chest 1V antonio ble [id number] Stat Exams 10/03/22 07:37 Completed Radiology Impressions Chest X-Ray 10/03/22 07:37 Impression: Atherosclerosis. Laboratory Results WBC 13.5 10^3/uL (4.0 -10.0) H 10/03/22 08:47 RBC 4.92 10^6/uL (4.1 -5.3) 10/03/22 08:47 Hgb 13.2 g/dL (11.5-1 5.3) 10/03/22 08:47 Hct 42.2 % (37.0-47.0 ) 10/03/22 08:47 MCV 85.8 fl (81-99) 10/03/22 08:47 MCH 26.8 pg (28.0-34. 0) L 10/03/22 08:47 MCHC 31.3 g/dL (30.0-3 6.0) 10/03/22 08:47 RDW 15.0 % (12.1-15.1 ) 10/03/22 08:47 Plt Count 390 10^3/cmm (130 -400) 10/03/22 08:47 MPV 10.0 fL (7.4-10.4 ) 10/03/22 08:47 Neut % (Auto) 83.5 % 10/03/22 08:47 Lymph % (Auto) 8.1 % 10/03/22 08:47 [place] % (Auto) 7.3 % 10/03/22 08:47 Eos % (Auto) 0.3 % 10/03/22 08:47 Baso % (Auto) 0.4 % 10/03/22 08:47 Neut # (Auto) 11.26 10^3/uL (1. 8-7.7) H 10/03/22 08:47 Lymph # (Auto) 1.1 10^3/uL (0.8- 4.8) 10/03/22 08:47 [place] # (Auto) 1.0 10^3/uL (0.2- 0.9) H 10/03/22 08:47 Eos # (Auto) 0.0 10^3/uL (0.0- 0.8) 10/03/22 08:47 Baso # (Auto) 0.1 10^3/uL (0.0- 0.1) 10/03/22 08:47 Nucleated RBC % (a uto) 0 % 10/03/22 08:47 Nucleated RBCs # 0.0 /100WBC 10/03/22 08:47 Sodium 139 mmol/L (136-1 45) 10/03/22 08:47 Potassium 3.7 mmol/L (3.5-5 .1) 10/03/22 08:47 Chloride 104 mmol/L (98-10 7) 10/03/22 08:47 Carbon Dioxide 24 mmol/L (22-29) 10/03/22 08:47 Anion Gap 14.7 (5-19) 10/03/22 08:47 BUN 13 mg/dL (6-20) 10/03/22 08:47 Creatinine 0.5 mg/dL (0.5-0. 9) 10/03/22 08:47 GFR Calculation 129.6 mL/min (90- 130) 10/03/22 08:47 Glucose 105 mg/dL (65-115 ) 10/03/22 08:47 Calculated Osmolal ity 288 mOsm/kg (285- 295) 10/03/22 08:47 Calcium 9.5 mg/dL (8.5-10 .5) 10/03/22 08:47 Total Bilirubin 0.4 mg/dL (0.15-1 .2) 10/03/22 08:47 AST 27 U/L (0-32) 10/03/22 08:47 ALT 33 U/L (0-33) 10/03/22 08:47 Alkaline Phosphata se 104 U/L (35-105) 10/03/22 08:47 Troponin T Baselin e 8 ng/L (0-10) 10/03/22 08:47 Troponin T 120 Min cecil 8.63 ng/L (0-10) 10/03/22 10:47 Delta Troponin T 0.63 ABS# (0-10) 10/03/22 10:47 Troponin T Hi Sens 6Hr 12.88 ng/L (0-10) H 10/03/22 15:10 Troponin T Hi Sens 6Hr Delta 4.88 ng/L (0-12) 10/03/22 15:10 Total Protein 8.0 g/dL (6.6-8.7 ) 10/03/22 08:47 Albumin 4.3 g/dL (3.5-5.2 ) 10/03/22 08:47 Globulin 3.7 g/dL (1.3-4.6 ) 10/03/22 08:47 Vitals: Last Vital Signs Temp 98.1 F 10/04/22 20:34 Pulse 82 10/04/22 20:34 Resp 18 10/04/22 20:34 BP 164/101 10/04/22 20:34 Pulse Ox 95 10/04/22 20:34 O2 Del Method 10/04/22 13:59 Discharge Plan Discharge Patient Disposition: Home Condition: Stable Prescriptions: New hydrochlorothiazide 25 mg tablet 25 mg PO QAM Qty: 30 3RF lisinopril 20 mg tablet 40 mg PO DAILY Qty: 60 3RF amlodipine 10 mg tablet 10 mg PO DAILY Qty: 30 2RF hydralazine 25 mg tablet 25 mg PO BID Qty: 60 1RF Continued hydroxyzine HCl 25 mg tablet 25 mg PO Q8H PRN (Reason: anxiety) Qty: 30 0RF BC Pain Relief 845-65 mg Powder In Packet 1 ea PO DAILY PRN (Reason: Headache) escitalopram oxalate 10 mg tablet 10 mg PO BEDTIME 30 Days Qty: 30 1RF Changed metoprolol succinate 25 mg tablet extended release 24 hr 25 mg PO BEDTIME 30 Days Qty: 30 1RF Discharge Orders: Discharge Order (Routine); Ordered 10/08/22 Ordered By: Elijah Causey Referrals: [facility] [Outside] - 10/09/22 8:30 am (Initial assessment for services.) Magallon,FRANCES Padilla [Primary Care Provider] - 10/13/22 11:30 am Discharge Diet: As Directed Discharge Activity: Resume usual activity Patient Instructions: Lisinopril (By mouth), Hydrochlorothiazide (By mouth), Hydralazine (By mouth), Amlodipine (By mouth), Opioid Safety Discharge Attestations NPU Time Spent in Discharge Care*: less than 30 min Specific Discharge Activities: Specific discharge activities: educating patient, discussing with medical case manager/social workers/dc planners, documenting/other paperwork and evaluating patient/reviewing data Coding Level of Care Code Acute Chg FW DC note Diagnoses Generalized anxiety disorder F41.1 HTN (hypertension) I10 Suicidal ideation R45.851 Adjustment disorder with mixed disturbance of emotions and conduct F43.25
--- NOTE | 2022-10-07 11:58 | PC.NURSE ---
BP checked on pt's right arm. 146/95 with 87 pulse. Pt informed staff would check it again at 2PM. Pt reminded if bp continues to elevate, pt would need to be transferred to med-surg for further evaluation. Discussed with pt what med-surg meant. Pt offering no complaints at this time. Pt is hoping to go home at 3pm when comes for a visit.
--- NOTE | 2022-10-07 13:53 | PC.NURSE ---
At 1315 LIABILITY CLAIMS REPRESENTATIVE staff reported pt was found up and about in day room complaining of feeling lightheqaded. Staff encouraged pt to sit down. When staff returned with the blood pressure machine, the pt was found standing up again, still complaining of lightheadedness. BP 147/80 with 88 pulse. Pt was returned to her room and instructed to lay down on her bed for safety. Pt rested approximately 30 minutes and blood pressure checked again. 125/81 with 98 pulse. Pt said she still had some lightheadedness. Also said she thought she was going to throw up. Pt said she needed to use the bathroom. Pt had a bowel movement. Gagged a few times and then returned to her bed after taking her denture out. She said she was feeling a little better. Dr. Long notified. Attempted to reach Dr. Causey without success. Will try again.
--- NOTE | 2022-10-07 15:28 | PC.NURSE ---
Called Dr. Causey to clarify if he wanted pt to receive her 1500 hydralazine as ordered. Received order to hold the dose if pt's systolic bp was less than 130 systolic. Pt's bp was 138/84 with 86 pulse. Pt informed. Medication provided as ordered. Pt alert, oriented, denies complaints.
--- NOTE | 2022-10-07 15:50 | PC.NURSE ---
Pt in day room with . Informed she had a bed on Med-Surg. Pt provided her BP medication as her BP met criteria. Reminded pt to let staff know if she had complaints, including lightheadedness, etc., change her positions slowly and get her berarings before attempting to stand up. Pt verbalized her understanding. She asked several questions and they were answered. Pt encouraged to communicate her needs with the M/S staff. Reviewed safety concerns related to falls with patient. She verbalized her understanding. Report was provided to SHARMIN Templeton and pt was transferred to Room 255 via wheelchair; pt was accompanied by her . Pt's belongings were taken with patient. Her phone and wallet were retrieved from the safe and taken to her as well.
[2022-10-07] MEDS: hyDRALAzine 50 mg Tablet 100 MG PO (15:54)
[2022-10-07] MEDS: acetaminophen 325 mg Tablet 650 MG PO (18:40)
[2022-10-07] MEDS: escitalopram 10 mg Tablet PO (20:06)
[2022-10-07] MEDS: metoprolol succinate ER (24 HR) 25 mg Tablet PO (20:06)
[2022-10-08] VITALS: BP 146/76; PULSE 71; RESP 17; TEMP 36.8; O2SAT 97
[2022-10-08 04:00] VITALS: BP 156/70; PULSE 66; RESP 17; TEMP 36.8; O2SAT 97
[2022-10-08 05:41] LABS: Basophils % 0.4 %; Eosinophils # 0.1 10^3/uL (0.0-0.8); Eosinophils % 1.3 %; Hematocrit 41.9 % (37.0-47.0); Hemoglobin 13.4 g/dL (11.5-15.3); Lymphocytes # 1.5 10^3/uL (0.8-4.8); Lymphocytes % 13.8 %; Mean Corpuscular Volume 84.5 fl (81-99); Monocytes # 1.2 10^3/uL (0.2-0.9); Monocytes % 10.9 %; Neutrophils # 8.12 10^3/uL (1.8-7.7); Neutrophils % 73.3 %; Nucleated Red Blood Cells % 0 %; Platelet Count 409 10^3/cmm (130-400); Red Blood Count 4.96 10^6/uL (4.1-5.3); Red Cell Distribution Width 15.4 % (12.1-15.1); White Blood Count 11.1 10^3/uL (4.0-10.0)
[2022-10-08 06:16] LABS: Anion Gap 15.5 (5-19); Blood Urea Nitrogen 22 mg/dL (6-20); Calcium 8.9 mg/dL (8.5-10.5); Carbon Dioxide 23 mmol/L (22-29); Chloride 94 mmol/L (98-107); Creatinine Clr Calc Pharmacy 126.8837; Glucose 131 mg/dL (65-115); Osmolality Calculated 273 mOsm/kg (285-295); Potassium 3.5 mmol/L (3.5-5.1); Sodium 129 mmol/L (136-145); Thyroid Stimulating Hormone 1.19 uIU/mL (0.27-4.20)
--- NOTE | 2022-10-08 07:46 | PM.DCS ---
Discharge Providers Date of Admission: 10/03/22 08:25 Date of Discharge: October 08, 2022 Attending Provider at Admission: Chance Long MD Attending Provider at Discharge: Chance Long MD Primary Care Provider: FRANCES Hudson Diagnoses at Discharge Discharge Diagnosis (1) Hypertensive urgency: Status: Acute (2) Adjustment disorder with mixed disturbance of emotions and conduct: Status: Acute (3) Suicidal ideation: Status: Acute (4) Generalized anxiety disorder: Status: Acute (5) HTN (hypertension): Status: Acute Reason for Visit Reason for Visit: [facility] Hospital Course Hospital Course Hospitalist service was consulted for hypertensive urgency management, patient was in neuropsychiatric unit for suicidal ideation generalized anxiety and adjustment disorder management. Her TSH is normal, patient has not taken any antihypertensive until this visit. Patient is stating that she was using weed to control her symptoms. Her blood pressure has been fluctuating between 150-190 mmHg, she was given optimal dose of amlodipine, lisinopril, metoprolol and thiazide. She was given hydralazine 100 mg 3 times a day as well which dropped her blood pressure to 130s which made her dizzy. No signs of stroke or press syndrome, she was monitored on MedSurg for 1 extra day. She will need close follow-up with PCP for her hypertensive regimen optimization. I do believe with all the medications we are starting they will achieve optimal serum level in the next couple of days and help her control blood pressure her potassium has been normal. Physical Exam Narrative: Awake and alert On no active dizziness Nonfocal neuro exam Saturating well on room air S1, S2 Abdomen soft Discharge Data Studies Completed and Pending Completed Studies During Hospitalization Category Date Time Status XR chest 1V portable [id number] Stat Exams 10/03/22 07:37 Completed Pending at discharge Category Date Time Status BMP [Basic Metabolic Panel] AM LABS Lab 10/07/22 08:00 Ordered Radiology Impressions Chest X-Ray 10/03/22 07:37 Impression: Atherosclerosis. Laboratory Results WBC 11.1 10^3/uL (4.0-10.0) H 10/08/22 05:16 RBC 4.96 10^6/uL (4.1-5.3) 10/08/22 05:16 Hgb 13.4 g/dL (11.5-15.3) 10/08/22 05:16 Hct 41.9 % (37.0-47.0) 10/08/22 05:16 MCV 84.5 fl (81-99) 10/08/22 05:16 MCH 27.0 pg (28.0-34.0) L 10/08/22 05:16 MCHC 32.0 g/dL (30.0-36.0) 10/08/22 05:16 RDW 15.4 % (12.1-15.1) H 10/08/22 05:16 Plt Count 409 10^3/cmm (130-400) H 10/08/22 05:16 MPV 10.0 fL (7.4-10.4) 10/08/22 05:16 Neut % (Auto) 73.3 % 10/08/22 05:16 Lymph % (Auto) 13.8 % 10/08/22 05:16 [place] % (Auto) 10.9 % 10/08/22 05:16 Eos % (Auto) 1.3 % 10/08/22 05:16 Baso % (Auto) 0.4 % 10/08/22 05:16 Neut # (Auto) 8.12 10^3/uL (1.8-7.7) H 10/08/22 05:16 Lymph # (Auto) 1.5 10^3/uL (0.8-4.8) 10/08/22 05:16 [place] # (Auto) 1.2 10^3/uL (0.2-0.9) H 10/08/22 05:16 Eos # (Auto) 0.1 10^3/uL (0.0-0.8) 10/08/22 05:16 Baso # (Auto) 0.0 10^3/uL (0.0-0.1) 10/08/22 05:16 Nucleated RBC % (auto) 0 % 10/08/22 05:16 Nucleated RBCs # 0.0 /100WBC 10/08/22 05:16 Sodium 129 mmol/L (136-145) L 10/08/22 05:16 Potassium 3.5 mmol/L (3.5-5.1) 10/08/22 05:16 Chloride 94 mmol/L (98-107) L 10/08/22 05:16 Carbon Dioxide 23 mmol/L (22-29) 10/08/22 05:16 Anion Gap 15.5 (5-19) 10/08/22 05:16 BUN 22 mg/dL (6-20) H 10/08/22 05:16 Creatinine 0.6 mg/dL (0.5-0.9) 10/08/22 05:16 GFR Calculation 105.0 mL/min (90-130) 10/08/22 05:16 Glucose 131 mg/dL (65-115) H 10/08/22 05:16 Calculated Osmolality 273 mOsm/kg (285-295) L 10/08/22 05:16 Calcium 8.9 mg/dL (8.5-10.5) 10/08/22 05:16 Total Bilirubin 0.4 mg/dL (0.15-1.2) 10/03/22 08:47 AST 27 U/L (0-32) 10/03/22 08:47 ALT 33 U/L (0-33) 10/03/22 08:47 Alkaline Phosphatase 104 U/L (35-105) 10/03/22 08:47 Troponin T Baseline 8 ng/L (0-10) 10/03/22 08:47 Troponin T 120 Minute 8.63 ng/L (0-10) 10/03/22 10:47 Delta Troponin T 0.63 ABS# (0-10) 10/03/22 10:47 Troponin T Hi Sens 6Hr 12.88 ng/L (0-10) H 10/03/22 15:10 Troponin T Hi Sens 6Hr Delta 4.88 ng/L (0-12) 10/03/22 15:10 Total Protein 8.0 g/dL (6.6-8.7) 10/03/22 08:47 Albumin 4.3 g/dL (3.5-5.2) 10/03/22 08:47 Globulin 3.7 g/dL (1.3-4.6) 10/03/22 08:47 TSH 1.19 uIU/mL (0.27-4.20) 10/08/22 05:16 Urine Opiates Screen Negative ng/mL (Negative) 10/06/22 05:20 Ur Barbiturates Screen Negative ng/mL (Negative) 10/06/22 05:20 Ur Phencyclidine Scrn Negative ng/mL (Negative) 10/06/22 05:20 Ur Amphetamines Screen Negative ng/mL (Negative) 10/06/22 05:20 U Benzodiazepines Scrn Negative ng/mL (Negative) 10/06/22 05:20 Urine Cocaine Screen Negative ng/mL (Negative) 10/06/22 05:20 U Marijuana (THC) Screen Negative ng/mL (Negative) 10/06/22 05:20 Vitals Last Vital Signs Temp 98.3 F 10/08/22 04:00 Pulse 66 10/08/22 04:00 Resp 17 10/08/22 04:00 BP 156/70 10/08/22 04:00 Pulse Ox 97 10/08/22 04:00 O2 Del Method 10/08/22 04:00 Discharge Plan Discharge Patient Disposition: Home Condition: Stable Prescriptions: New hydrochlorothiazide 25 mg tablet 25 mg PO QAM Qty: 30 3RF lisinopril 20 mg tablet 40 mg PO DAILY Qty: 60 3RF amlodipine 10 mg tablet 10 mg PO DAILY Qty: 30 2RF hydralazine 25 mg tablet 25 mg PO BID Qty: 60 1RF Continued hydroxyzine HCl 25 mg tablet 25 mg PO Q8H PRN (Reason: anxiety) Qty: 30 0RF BC Pain Relief 845-65 mg Powder In Packet 1 ea PO DAILY PRN (Reason: Headache) escitalopram oxalate 10 mg tablet 10 mg PO BEDTIME 30 Days Qty: 30 1RF Changed metoprolol succinate 25 mg tablet extended release 24 hr 25 mg PO BEDTIME 30 Days Qty: 30 1RF Discharge Orders: Discharge Order (Routine); Ordered 10/08/22 Ordered By: Elijah Causey Referrals: [facility] [Outside] - 10/09/22 8:30 am (Initial assessment for services.) Magallon,FRANCES Padilla [Primary Care Provider] - 1-3 days Discharge Diet: As Directed Discharge Activity: Resume usual activity Patient Instructions: Lisinopril (By mouth), Hydrochlorothiazide (By mouth), Hydralazine (By mouth), Amlodipine (By mouth), Opioid Safety Discharge Attestations Time Spent in Discharge Care*: less than 30 min Quality Metrics Clinical Quality Measures [ No reported AMI, CVA or VTE this stay] Coding Level of Care Code Acute Chg FW DC note Diagnoses Hypertensive urgency I16.0 Adjustment disorder with mixed disturbance of emotions and conduct F43.25 Suicidal ideation R45.851 Generalized anxiety disorder F41.1 HTN (hypertension) I10
[2022-10-08 08:00] VITALS: BP 155/94; PULSE 68; RESP 17; O2SAT 95
[2022-10-08] MEDS: lisinopril 20 mg Tablet 40 MG PO (08:26)
[2022-10-08] MEDS: amlodipine 10 mg Tablet PO (08:26)
[2022-10-08] MEDS: chlorthalidone 25 mg Tablet PO (09:01)
[2022-10-08 09:51] LABS: Blood Urea Nitrogen 19 mg/dL (6-20); Calcium 9.7 mg/dL (8.5-10.5); Carbon Dioxide 24 mmol/L (22-29); Chloride 92 mmol/L (98-107); Creatinine Clr Calc Pharmacy 126.8837; Glucose 142 mg/dL (65-115); Osmolality Calculated 273 mOsm/kg (285-295); Sodium 129 mmol/L (136-145)
[2022-10-08 10:47] VITALS: BP 155/94; PULSE 68; RESP 17; O2SAT 95
[2022-10-08] MEDS: hyDRALAzine 25 mg Tablet PO (11:20)
--- NOTE | 2022-10-08 13:30 | PC.NURSE ---
Discharge education reviewed with patient, bulb brander also reviewed d/c poc with patient and spouse at bedside. This nurse and charge answered all questions multiple times and meds sent home with patient.
== END 2022-10-08 13:30 | disposition home or self-care (01) | DRG 882 ==
LOC: ER 10:51 → NP 12:11 → MEDSURG 10-07 16:17
PROVIDERS: Internal Medicine; Admitting Provider Psychiatry & Neurology Psychiatry; Emergency Provider Family Medicine; PCP Nurse Practitioner Family; Visit Provider Psychiatry & Neurology Psychiatry
DX: F43.25 Adjustment disorder with mixed disturbance of emotions and conduct (principal); R45.851 Suicidal ideations; F41.1 Generalized anxiety disorder; I10 Essential (primary) hypertension; I16.0 Hypertensive urgency; Z88.0 Allergy status to penicillin; Z91.040 Latex allergy status
CPT/HCPCS: 36415; 71045; 80048; 80053; 80306; 84443; 84484; 85025; 93005; 97150; 97165; 99285; J0360; J2060; J3490

== ENCOUNTER 2022-10-16 10:56 | Inpatient (IN) | payer OTHER, SELFPAY ==
--- NOTE | 2022-10-16 10:59 | W.ED.PSYCHS ---
HPI - Psych General: Chief Complaint: Psychiatric Symptoms Stated Complaint: SI Time Seen by Provider: 10/16/22 10:59 History of Present Illness: Ms Linares is a 52-year-old lady with history of hypertension, anxiety, mood disorder presenting to the emergency department due to suicidal ideation and actions. Apparently symptoms have been mild for some period of time however worsened recently in the context of significant social stressors. She presented to the emergency department on 10/03 with anxiety and tearfulness and recent starting of Lexapro. She was evaluated by the psychiatry service and medicine service and improved though reports sleep difficulty and worsening suicidal thoughts since discharge on 10/07. She apparently has also been suffering hallucinations or possibly delusions. Last night she was up all night telling her that she no longer wanted to live and did some sort of a tie around her neck with plan to hang herself. There is no loss of consciousness or actual suspension. The patient otherwise denies injuries or self-harm attempts. She has difficulty admitting what has been going on. Intensity symptoms is severe. Course is worsened. No other specific changes in health, exacerbating, or alleviating factors identified. Onset (ago): day(s) Duration: getting worse Relieving factors: none Exacerbating factors: none Context: significant life stressor Associated psychiatric symptoms: depression, suicidal ideation and racing thoughts If self harm: admits thoughts of self harm, has plan and has acted on plan Review of Systems General: Reports: 10 or more systems reviewed and unremarkable except in HPI and below PFSH ED PFSH: Medical History Disruptive mood dysregulation disorder Generalized anxiety disorder HTN (hypertension) Hypertensive urgency Psychiatric care Social History Smoking and tobacco status: never smoked Alcohol intake: never Female Reproductive History: Date of last menstrual period: 04/28/22 Physical Exam Const: COMMON NORMALS: alert GENERAL APPEARANCE: well developed and anxious HENMT: COMMON NORMALS: normocephalic and atraumatic HEAD & SCALP: normocephalic and atraumatic Eye: COMMON NORMALS: conjunctivae normal CONJUNCTIVA: Yes conjunctivae normal SCLERA: sclerae normal Neck/C-Spine: COMMON NORMALS: supple GENERAL: Yes trachea midline Resp: COMMON NORMALS: clear to auscultation bilaterally EFFORT & INSPECTION: Yes able to speak in complete sentences AUSCULTATION: clear to auscultation bilaterally Cardio: COMMON NORMALS: regular rate and regular rhythm RATE: regular rate RHYTHM: regular rhythm GI: COMMON NORMALS: Soft to palpation PALPATION: Yes Soft to palpation and No Tenderness to palpation present (GI) Extremity: GENERAL: Yes normal exam except as noted and No edema Neuro: COMMON NORMALS: moves all extremities SENSORIUM/ORIENTATION: Yes alert and No Orientation impaired Psych: ATTITUDE: Yes evasive ACTIVITY/MOTOR BEHAVIOR: Yes fidgeting, Yes restless and Yes Avoids eye contact (attititude/behavior) MOOD & AFFECT: Yes depressed mood, Yes anxious, Yes tearful and Yes fearful THOUGHT CONTENT: Yes Suicidality present INSIGHT: Fair insight present (Psych) JUDGEMENT: Poor judgement present (Psych) Course Vital Signs: Vital signs: Vital Signs Temperature 97.7 F 10/27/22 12:46 Pulse Rate 75 10/27/22 12:46 Respiratory Rate 18 10/27/22 12:46 Blood Pressure 116/68 10/27/22 12:46 Pulse Oximetry 94 10/27/22 12:46 Oxygen Delivery Me thod 10/26/22 14:00 MDM - Psych Medical Decision Making 52-year-old lady presenting for suicidal ideation and actions. Patient is tearful and appears depressed on exam. She is very reluctant to discuss events from the previous night. She is nontoxic and no physical injuries identified on physical exam. Laboratory studies with mild leukocytosis of unclear etiology which in absence of specific symptoms is likely not clinically relevant, similar to prior, hemoglobin normal and mild thrombocytosis. Metabolic panel improved from prior without significant derangement identified. No urinary tract infection. Toxic ingestions and urine drug screen was negative. Given physical exam findings as well as clinical history with no suspension or crook on the neck I do not believe that patient requires imaging at this time. Chest x-ray from 10/03 was reviewed and is normal. Given severity of patient's symptoms including actions of furtherance towards suicide the patient requires inpatient management for psychiatric assessment and stabilization. Based on ED evaluation at this point there is no obvious condition that would preclude the patient from inpatient management psychiatric concerns/symptoms. The results of ED evaluation were discussed with the patient including plan for admission due to requirement for level of care not available if discharged to prevent significant worsening/deterioration. Patient agreeable with plan. Discussed with psychiatry service who was agreeable to admit patient. Medical Records I reviewed the patient's medical records. Lab Data I reviewed the patient's lab results. 10/16/22 11:41 10/16/22 11:41 Laboratory Results WBC 13.1 10^3/uL (4.0-10.0) H 10/16/22 11:41 RBC 4.97 10^6/uL (4.1-5.3) 10/16/22 11:41 Hgb 13.6 g/dL (11.5-15.3) 10/16/22 11:41 Hct 42.1 % (37.0-47.0) 10/16/22 11:41 MCV 84.7 fl (81-99) 10/16/22 11:41 MCH 27.4 pg (28.0-34.0) L 10/16/22 11:41 MCHC 32.3 g/dL (30.0-36.0) 10/16/22 11:41 RDW 15.8 % (12.1-15.1) H 10/16/22 11:41 Plt Count 419 10^3/cmm (130-400) H 10/16/22 11:41 MPV 9.9 fL (7.4-10.4) 10/16/22 11:41 Neut % (Auto) 80.3 % 10/16/22 11:41 Lymph % (Auto) 10.7 % 10/16/22 11:41 Alcorn % (Auto) 7.0 % 10/16/22 11:41 Eos % (Auto) 1.1 % 10/16/22 11:41 Baso % (Auto) 0.5 % 10/16/22 11:41 Neut # (Auto) 10.47 10^3/uL (1.8-7.7) H 10/16/22 11:41 Lymph # (Auto) 1.4 10^3/uL (0.8-4.8) 10/16/22 11:41 Alcorn # (Auto) 0.9 10^3/uL (0.2-0.9) 10/16/22 11:41 Eos # (Auto) 0.2 10^3/uL (0.0-0.8) 10/16/22 11:41 Baso # (Auto) 0.1 10^3/uL (0.0-0.1) 10/16/22 11:41 Nucleated RBC % (auto) 0 % 10/16/22 11:41 Nucleated RBCs # 0.0 /100WBC 10/16/22 11:41 Sodium 136 mmol/L (136-145) 10/16/22 11:41 Potassium 4.3 mmol/L (3.5-5.1) 10/16/22 11:41 Chloride 101 mmol/L (98-107) 10/16/22 11:41 Carbon Dioxide 22 mmol/L (22-29) 10/16/22 11:41 Anion Gap 17.3 (5-19) 10/16/22 11:41 BUN 16 mg/dL (6-20) 10/16/22 11:41 Creatinine 0.6 mg/dL (0.5-0.9) 10/16/22 11:41 GFR Calculation 105.0 mL/min (90-130) 10/16/22 11:41 Glucose 111 mg/dL (65-115) 10/16/22 11:41 Calculated Osmolality 284 mOsm/kg (285-295) L 10/16/22 11:41 Calcium 9.5 mg/dL (8.5-10.5) 10/16/22 11:41 Total Bilirubin 0.3 mg/dL (0.15-1.2) 10/16/22 11:41 AST 23 U/L (0-32) 10/16/22 11:41 ALT 32 U/L (0-33) 10/16/22 11:41 Alkaline Phosphatase 96 U/L (35-105) 10/16/22 11:41 Total Protein 7.8 g/dL (6.6-8.7) 10/16/22 11:41 Albumin 4.3 g/dL (3.5-5.2) 10/16/22 11:41 Globulin 3.5 g/dL (1.3-4.6) 10/16/22 11:41 TSH 1.08 uIU/mL (0.27-4.20) 10/16/22 11:41 Urine Color Yellow (Yellow) 10/16/22 11:44 Urine Appearance Clear (CLEAR) 10/16/22 11:44 Urine pH 5 (5-7) 10/16/22 11:44 Ur Specific Bradley 1.015 (1.005-1.030) 10/16/22 11:44 Urine Protein Neg (Negative) 10/16/22 11:44 Urine Glucose (UA) Norm (Normal) 10/16/22 11:44 Urine Ketones Negative (Negative) 10/16/22 11:44 Urine Blood Neg (Negative) 10/16/22 11:44 Urine Nitrate Negative (Negative) 10/16/22 11:44 Urine Bilirubin Neg (Negative) 10/16/22 11:44 Urine Urobilinogen Neg mg/dL (Negative) 10/16/22 11:44 Ur Leukocyte Esterase Negative (Negative) 10/16/22 11:44 Salicylates < 0.3 mg/dL (3-10) L 10/16/22 11:41 Urine Opiates Screen Negative ng/mL (Negative) 10/16/22 11:44 Acetaminophen < 5.0 ug/mL (10-30) L 10/16/22 11:41 Ur Barbiturates Screen Negative ng/mL (Negative) 10/16/22 11:44 Ur Phencyclidine Scrn Negative ng/mL (Negative) 10/16/22 11:44 Ur Amphetamines Screen Negative ng/mL (Negative) 10/16/22 11:44 U Benzodiazepines Scrn Negative ng/mL (Negative) 10/16/22 11:44 Urine Cocaine Screen Negative ng/mL (Negative) 10/16/22 11:44 U Marijuana (THC) Screen Negative ng/mL (Negative) 10/16/22 11:44 Ethyl Alcohol < 10 mg/dL (0-10) 10/16/22 11:41 Discharge Plan Discharge Patient Disposition: Admitted As Inpatient Admit Provider: Stephan Reis Clinical Impression: Suicidal ideation, Depression Condition: Stable Discharge Diet: Low Salt Discharge Activity: Resume usual activity Coding Level of Care Code ED Snaker Tractor Driver for Chg Fwd Exam Comprehensive
[2022-10-16 11:01] VITALS: BP 136/100; PULSE 104; RESP 18; TEMP 37.2; O2SAT 98
[2022-10-16] MEDS: LORazepam 1 mg Tablet PO (11:40)
[2022-10-16 11:47] LABS: Basophils # 0.1 10^3/uL (0.0-0.1); Basophils % 0.5 %; Eosinophils # 0.2 10^3/uL (0.0-0.8); Eosinophils % 1.1 %; Hematocrit 42.1 % (37.0-47.0); Hemoglobin 13.6 g/dL (11.5-15.3); Lymphocytes # 1.4 10^3/uL (0.8-4.8); Lymphocytes % 10.7 %; Mean Corpuscular HGB Conc 32.3 g/dL (30.0-36.0); Mean Corpuscular Hemoglobin 27.4 pg (28.0-34.0); Mean Corpuscular Volume 84.7 fl (81-99); Mean Platelet Volume 9.9 fL (7.4-10.4); Monocytes # 0.9 10^3/uL (0.2-0.9); Neutrophils # 10.47 10^3/uL (1.8-7.7); Neutrophils % 80.3 %; Nucleated Red Blood Cells % 0 %; Platelet Count 419 10^3/cmm (130-400); Red Blood Count 4.97 10^6/uL (4.1-5.3); Red Cell Distribution Width 15.8 % (12.1-15.1); White Blood Count 13.1 10^3/uL (4.0-10.0)
[2022-10-16 11:48] LABS: Add Urine Microscopic? NO; Charge for UA Resulting for Rev
[2022-10-16 11:49] LABS: Bilirubin Urine Neg (Negative); Blood Urine Neg (Negative); Glucose Urine UA Norm (Normal); Ketones Urine Negative (Negative); Leukocyte Esterase Urine Negative (Negative); Nitrate Urine Negative (Negative); Protein Urine Neg (Negative); Specific Gravity, Urine 1.015 (1.005-1.030); Urine Appearance Clear (CLEAR); Urine Color Yellow (Yellow); Urobilinogen Urine Neg (Negative); pH Urine 5 (5-7)
[2022-10-16 12:26] LABS: Acetaminophen < 5.0 ug/mL (10-30); Alanine Aminotransferase 32 U/L (0-33); Albumin Level 4.3 g/dL (3.5-5.2); Alcohol Level < 10 mg/dL (0-10); Alkaline Phosphatase 96 U/L (35-105); Blood Urea Nitrogen 16 mg/dL (6-20); Calcium 9.5 mg/dL (8.5-10.5); Carbon Dioxide 22 mmol/L (22-29); Chloride 101 mmol/L (98-107); Globulin 3.5 g/dL (1.3-4.6); Glucose 111 mg/dL (65-115); Osmolality Calculated 284 mOsm/kg (285-295); Salicylate < 0.3 mg/dL (3-10); Sodium 136 mmol/L (136-145); Thyroid Stimulating Hormone 1.08 uIU/mL (0.27-4.20); Total Bilirubin 0.3 mg/dL (0.15-1.2); Total Protein 7.8 g/dL (6.6-8.7)
[2022-10-16 12:27] LABS: Anion Gap 17.3 (5-19); Aspartate Amino Transferase 23 U/L (0-32); Potassium 4.3 mmol/L (3.5-5.1)
[2022-10-16 12:33] LABS: Amphetamines Screen Urine Negative (Negative); Barbiturates Screen Urine Negative (Negative); Benzodiazepines Screen Urine Negative (Negative); Cocaine Screen Urine Negative (Negative); Opiate Screen Urine Negative (Negative); PCP Screen Urine Negative (Negative); THC Screen Urine Negative (Negative)
[2022-10-16 13:41] VITALS: BP 141/99; PULSE 78; RESP 18; O2SAT 98
[2022-10-16 13:44] VITALS: BP 141/86; PULSE 69; RESP 20; TEMP 36.7; O2SAT 100
--- NOTE | 2022-10-16 13:58 | PC.NURSE ---
PT ARRIVES TO UNIT FROM ED WITH MODERATE ANXIETY NOTED, BOUNCING LEGS AND DARTING EYES. THIS NURSE KNOWS PT FROM WORK IN THE PAST AND WE LIVE AND SEE EACH OTHER IN THE SAME [place]. I ASKED PT IF SHE WAS COMFORTABLE WITH ME DOING HER ADMISSION ASSESSMENT AND PT STATES IT WOULD BE A LOT EASIER IF I DIDNT KNOW EVERYBODY . NOTIFIED NURSE SLEEVE SETTER SAFETY STITCH LALA RN OF PTS RESPONSE AND LALA WILL COME TO UNIT TO DO ADMISSION. PT INFORMED OF CHANGE OF NURSES FOR ADMIT AND WAS RELIEVED. PRN VISTRIL GIVEN PER MED NURSE FOR ANXIETY
[2022-10-16 14:00] VITALS: BP 141/86; PULSE 69; RESP 20; TEMP 36.7; O2SAT 100
[2022-10-16] MEDS: hyDROXYzine 25 mg Capsule 50 MG PO ×2 (14:01→20:40)
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
[2022-10-16] MEDS: hyDRALAzine 25 mg Tablet PO (18:44)
[2022-10-16] MEDS: metoprolol succinate ER (24 HR) 25 mg Tablet PO (20:40)
[2022-10-16 21:42] VITALS: BP 109/76; PULSE 105; RESP 18; TEMP 37; O2SAT 95
[2022-10-17] MEDS: hydroCHLOROthiazide 25 mg Tablet PO (08:24)
[2022-10-17] MEDS: hyDRALAzine 25 mg Tablet PO ×2 (08:24→20:35)
[2022-10-17] MEDS: amlodipine 10 mg Tablet PO (08:24)
[2022-10-17] MEDS: lisinopril 20 mg Tablet 40 MG PO (08:24)
[2022-10-17] MEDS: sertraline 50 mg Tablet PO (08:24)
[2022-10-17] MEDS: loperamide 2 mg Capsule PO ×2 (09:28→20:38)
[2022-10-17 14:00] VITALS: BP 144/84; PULSE 93; RESP 18; TEMP 36.7; O2SAT 98
--- NOTE | 2022-10-17 15:27 | P.NPUPN_ITS ---
Subjective NPU Subjective: The patient is a 52-year-old white female admitted with suicidal ideation and a recent suicide attempt after a recent hospitalization just 8 days ago. Patient had endorsed having worsening depression that appeared to be more profound over the last few months as she had reported a significant loss of enjoyment and loss of activities that had kept her busy and kept her feeling important. 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 She had reported that she struggled with communicating with her regarding her feelings and stated that she had been quite depressed and she had reported embarrassment over causing her family to suffer. She had reported tremendous difficulties with concentration and stated that she felt tired all the time . She had reported previous medication trials and stated that this is her third separate episode of depression in her lifetime. Mental Status Exam MSE Comments: This is an overweight versus obese white female with thinning hair in hospital scrubs with adequate grooming and limited eye contact. No abnormal movements except for severe psychomotor retardation. Cooperative with exam in moderate distress. Speech was normal rate,prosody, and volume. Mood described as depressed, affect is restricted in range and mood congruent. She was tearful on interview. Thought process was linear and organized. Thought content: She denied suicidal ideation and denied homicidal ideation. There was no evidence of delusional thinking. She did not appear to be responding to internal stimuli. She was alert and oriented to person place and time. Registration: 3/3, 2/3 at 5 minutes. Attention and concentration appeared adequ ate.Her memory appeared reliable but none were formally tested. She is alert and oriented times three. Insight was poor. Judgment is poor. Impulse control is poor. Vitals/I&O/Wt Last Vital Signs Temp 98.0 F 10/17/22 14:00 Pulse 93 10/17/22 14:00 Resp 18 10/17/22 14:00 BP 144/84 10/17/22 14:00 Pulse Ox 98 10/17/22 14:00 O2 Del Method 10/17/22 14:00 Weight last 48 hrs Weight 79.379 kg Data NPU 10/16/22 11:41 10/16/22 11:41 A&P Assessment and plan (1) Major depressive disorder: (2) Generalized anxiety disorder: (3) HTN (hypertension): (4) Suicidal ideation: Plan This is a 52 year old woman with a history of depression related to significant moments in her life and genetic loading for mental health issues who presents with recent depression and suicidal ideation who arrives here with suicide attempt recently admitted 2 times in last month. 1. Continue Zoloft 50mg daily. 2. Encourage individual, group and milieu therapy 3. Continue q-15 minute check for safety 4. Consider adjunctive abilify, rexulti, or seroquel xr, 5. Patient requires psychotherapy. Involuntary Hold Information 96 Hour Hold: 96 Hour Involuntary Admission: No Attestations NPU Medical Necessity Statement*: Inpatient hospitalization is medically necessary and the clinically appropriate intervention at this time. She will be hospitalized for at least 2 midnights. We will monitor medications and make changes as indicated. Likely length of stay is 5-7 days. Coding Level of Care Code Established Pt Acute Code for Chg Fwd Patient Type Established History Problem Focused Exam Problem Focused Medical Decision Making Straight Forward Diagnoses Major depressive disorder F32.9 Generalized anxiety disorder F41.1 HTN (hypertension) I10 Suicidal ideation R45.851
[2022-10-17] MEDS: metoprolol succinate ER (24 HR) 25 mg Tablet PO (20:35)
[2022-10-17 20:50] VITALS: BP 119/78; PULSE 83; RESP 16; TEMP 36.9; O2SAT 98
[2022-10-18 06:15] VITALS: BP 138/91; PULSE 83; RESP 16; TEMP 36.7; O2SAT 98
[2022-10-18] MEDS: hyDROXYzine 25 mg Capsule 50 MG PO (10:01)
[2022-10-18] MEDS: lisinopril 20 mg Tablet 40 MG PO (10:01)
[2022-10-18] MEDS: hyDRALAzine 25 mg Tablet PO ×2 (10:02→19:31)
[2022-10-18] MEDS: sertraline 50 mg Tablet PO (10:02)
[2022-10-18] MEDS: hydroCHLOROthiazide 25 mg Tablet PO (10:03)
[2022-10-18] MEDS: amlodipine 10 mg Tablet PO (10:03)
[2022-10-18 14:00] VITALS: BP 132/64; PULSE 71; RESP 17; TEMP 37.3; O2SAT 98
--- NOTE | 2022-10-18 14:08 | W.PM.NPUPNS ---
Subjective NPU Subjective: The patient is a 52-year-old white female admitted with suicidal ideation and a recent suicide attempt after a recent hospitalization 2 weeks ago. She continued to endorse depressed mood. She had expressed great desire to return home. She continued to describe having financial concerns and stated that she was sensitive to medications. She had reported difficulties with falling asleep. She states that she had a good visit with her . She continued to report feeling horrible about attempting to hang herself and stated that she was trying to bury it somewhere. Patient had attended groups. She had reported continued problems with low energy and low motivation. She had reported having abdominal discomfort and headaches but stated that she had had this problem prior to the initiation of Zoloft as well. She had minimized having suicidal thoughts. Mental Status Exam MSE Comments: This is an overweight versus obese white female with thinning hair in hospital scrubs with adequate grooming and limited eye contact. No abnormal movements except for severe psychomotor retardation. Cooperative with exam in moderate distress. Speech was normal rate,prosody, and volume. Mood described as depressed, affect is restricted in range and mood congruent. Thought process was linear and organized but superficial today. Thought content: She denied suicidal ideation and denied homicidal ideation. There was no evidence of delusional thinking. She did not appear to be responding to internal stimuli. She was alert and oriented to person place and time. Attention and concentration appeared adequate.Her memory appeared reliable but none were formally tested Today. She is alert and oriented times three. Insight was poor. Judgment is poor. Impulse control is poor. Vitals/I&O/Wt Last Vital Signs Temp 98.1 F 10/18/22 06:15 Pulse 83 10/18/22 06:15 Resp 16 10/18/22 06:15 BP 138/91 10/18/22 06:15 Pulse Ox 98 10/18/22 06:15 O2 Del Method 10/17/22 14:00 Data NPU 10/16/22 11:41 10/16/22 11:41 A&P Assessment and plan (1) Major depressive disorder: (2) Generalized anxiety disorder: (3) HTN (hypertension): (4) Suicidal ideation: Plan This is a 52 year old woman with a history of depression related to significant moments in her life and genetic loading for mental health issues who presents with recent depression and suicidal ideation who arrives here with suicide attempt recently admitted 2 times in last month. 1. Continue Zoloft 50mg daily. 2. Encourage individual, group and milieu therapy 3. Continue q-15 minute check for safety 4. Consider adjunctive abilify, rexulti, or seroquel xr, 5. Patient requires psychotherapy. Involuntary Hold Information 96 Hour Hold: 96 Hour Involuntary Admission: No Attestations NPU Medical Necessity Statement*: Inpatient hospitalization is medically necessary and the clinically appropriate intervention at this time. She will be hospitalized for at least 2 midnights. We will monitor medications and make changes as indicated. Likely length of stay is 5-7 days. Coding Level of Care Code Established Pt Acute Code for Chg Fwd Patient Type Established History Problem Focused Exam Problem Focused Medical Decision Making Straight Forward Diagnoses Major depressive disorder F32.9 Generalized anxiety disorder F41.1 HTN (hypertension) I10 Suicidal ideation R45.858
[2022-10-18] MEDS: metoprolol succinate ER (24 HR) 25 mg Tablet PO (19:32)
[2022-10-18 20:01] VITALS: BP 124/68; PULSE 85; RESP 16; TEMP 37.3; O2SAT 96
[2022-10-19 04:10] VITALS: BP 150/85; PULSE 94; RESP 16; TEMP 36.8; O2SAT 97
[2022-10-19] MEDS: hyDROXYzine 25 mg Capsule 50 MG PO (04:41)
[2022-10-19] MEDS: LORazepam 2 mg/mL INJ 1 mL IM (05:08)
--- NOTE | 2022-10-19 05:10 | PC.NURSE ---
pt was crying uncontrollably. Verbal deescalation was attempted. Hydroxyzine 50 mg po given with no relief. RN suggested IM Ativan be given. Ativan 2 mg IM in right deltoid. Pt tolerated well
[2022-10-19 05:21] VITALS: BP 96/53
[2022-10-19] MEDS: hyDRALAzine 25 mg Tablet PO ×2 (07:56→19:53)
[2022-10-19] MEDS: amlodipine 10 mg Tablet PO (07:56)
[2022-10-19] MEDS: sertraline 50 mg Tablet PO (07:56)
[2022-10-19] MEDS: lisinopril 20 mg Tablet 40 MG PO (07:56)
[2022-10-19] MEDS: hydroCHLOROthiazide 25 mg Tablet PO (07:57)
--- NOTE | 2022-10-19 08:10 | PC.NURSE ---
shift assessment asleep in room, had to be woken up by staff, asked if she was okay, pt stated I'm just scared about being here and all the paperwork ... assured that she was safe here in the hospital, that nurses and CNAs were checking on her often, denies any SI/HI/AVH currently... this nurse did notice no allergy band was on. allergy band made and put on right arm.
[2022-10-19 14:00] VITALS: BP 134/82; PULSE 87; RESP 17; TEMP 37; O2SAT 99
--- NOTE | 2022-10-19 14:27 | P.NPUPN_ITS ---
Subjective NPU Subjective: The patient is a 52-year-old white female admitted with suicidal ideation and a recent suicide attempt after a recent hospitalization 2 weeks ago. Patient had periods of intense tearfulness noted by staff. She reports having a visit from her yesterday. She had reported feeling ashamed and stated that she continued to feel depressed. She reported no thoughts of hurting herself and stated that she wished to go home soon. She had reported having occasional headaches and complained of loose stools. She had reported that she was continuing to feel unmotivated but stated that her energy was improving. She continued to endorse chronic worry regarding a myriad of different things. She reported at times having difficulties with falling asleep because of her worry. She had reported having tension in her neck at times and stated that she would like to get some help with managing her worry on a routine basis. She had expressed some skepticism towards receiving psychotherapy as she had reported financial stressors would make it expensive for her to receive psychotherapy. She had acknowledged having no previous history of psychotherapy but was provided information regarding the potential benefits of psychotherapy for her treatment of depression and anxiety. Mental Status Exam MSE Comments: This is an overweight versus obese white female with thinning hair in hospital scrubs with adequate grooming and limited eye contact. No abnormal movements except for severe psychomotor retardation. Cooperative with exam in moderate distress. Speech was normal rate,prosody, and volume. Mood described as depressed, affect remained restricted in range and mood congruent .. Thought process was linear and organized but superficial today. Thought content: She denied suicidal ideation and denied homicidal ideation. There was no evidence of delusional thinking. She did not appear to be responding to internal stimuli. She was alert and oriented to person place and time. Attention and concentration appeared adequate.Her memory appeared reliable but none were formally tested Today. She is alert and oriented times three. Insight was poor. Judgment is poor. Impulse control is poor. Vitals/I&O/Wt Last Vital Signs Temp 98.2 F 10/19/22 04:10 Pulse 94 10/19/22 04:10 Resp 16 10/19/22 04:10 BP 96/53 10/19/22 05:21 Pulse Ox 97 10/19/22 04:10 O2 Del Method 10/17/22 14:00 Weight last 48 hrs Weight 98.611 kg Data NPU 10/16/22 11:41 10/16/22 11:41 A&P Assessment and plan (1) Major depressive disorder: (2) Generalized anxiety disorder: (3) HTN (hypertension): (4) Suicidal ideation: Plan This is a 52 year old woman with a history of depression related to significant moments in her life and genetic loading for mental health issues who presents with recent depression and suicidal ideation who arrives here with suicide attempt recently admitted 2 times in last month. 1. Continue Zoloft 50mg daily. 2. Encourage individual, group and milieu therapy 3. Continue q-15 minute check for safety 4. Consider adjunctive abilify, rexulti, or seroquel xr, 5. Patient requires psychotherapy. Involuntary Hold Information 96 Hour Hold: 96 Hour Involuntary Admission: No Attestations NPU Medical Necessity Statement*: Inpatient hospitalization is medically necessary and the clinically appropriate intervention at this time. She will be hospitalized for at least 2 midnights. We will monitor medications and make changes as indicated. Likely length of stay is 5-7 days. Coding Level of Care Code Established Pt Acute Code for Chg Fwd Patient Type Established History Problem Focused Exam Problem Focused Medical Decision Making Straight Forward Diagnoses Major depressive disorder F32.9 Generalized anxiety disorder F41.1 HTN (hypertension) I10 Suicidal ideation R45.851
[2022-10-19] MEDS: metoprolol succinate ER (24 HR) 25 mg Tablet PO (19:53)
[2022-10-19 22:00] VITALS: BP 102/72; PULSE 96; RESP 18; TEMP 36.8; O2SAT 98
[2022-10-20 06:00] VITALS: BP 122/76; PULSE 75; RESP 16; TEMP 36.8; O2SAT 97
[2022-10-20] MEDS: amlodipine 10 mg Tablet PO (09:15)
[2022-10-20] MEDS: hyDRALAzine 25 mg Tablet PO ×2 (09:15→20:09)
[2022-10-20] MEDS: lisinopril 20 mg Tablet 40 MG PO (09:15)
[2022-10-20] MEDS: sertraline 50 mg Tablet PO (09:15)
[2022-10-20] MEDS: hydroCHLOROthiazide 25 mg Tablet PO (09:15)
[2022-10-20] MEDS: LORazepam 1 mg Tablet PO (13:38)
[2022-10-20 14:00] VITALS: BP 120/79; PULSE 90; RESP 18; TEMP 36.8; O2SAT 97
--- NOTE | 2022-10-20 16:06 | W.PM.NPUPNS ---
Subjective NPU Subjective: The patient is a 52-year-old white female admitted with suicidal ideation and a recent suicide attempt after a recent hospitalization 2 weeks ago. The patient had become tearful on the milieu after discussing some of her stressors stating that she was having a panic attack for which she received Ativan with some improvement in her anxiety noted. She had reported continued loose stools since the initiation of Zoloft. She continued to have numerous somatic complaints including frequent headaches. She had reported her lack of desire to continue therapy but still had expressed her wish to be able to communicate better with her . She had expressed depressed mood but minimized any thoughts of hurting herself or others. The patient had attended groups and reported continued chronic worry with some neck tension and difficulties with falling asleep. Mental Status Exam MSE Comments: This is an overweight versus obese white female with thinning hair in hospital scrubs with adequate grooming and limited eye contact. No abnormal movements except for severe psychomotor retardation. Cooperative with exam in moderate distress. Speech was normal rate,prosody, and volume. Mood described as depressed. affect was tearful today Her thought process was linear and organized but superficial today. Thought content: She denied suicidal ideation and denied homicidal ideation. There was no evidence of delusional thinking. She did not appear to be responding to internal stimuli. She was alert and oriented to person place and time. Attention and concentration appeared adequate.Her memory appeared reliable but none were formally tested today. She is alert and oriented times three. Insight was poor. Judgment is poor. Impulse control is poor. Vitals/I&O/Wt Last Vital Signs Temp 98.3 F 10/20/22 06:00 Pulse 75 10/20/22 06:00 Resp 16 10/20/22 06:00 BP 122/76 10/20/22 06:00 Pulse Ox 97 10/20/22 06:00 O2 Del Method 10/19/22 22:00 Weight last 48 hrs Weight 98.611 kg Data NPU 10/16/22 11:41 10/16/22 11:41 A&P Assessment and plan (1) Major depressive disorder: (2) Generalized anxiety disorder: (3) HTN (hypertension): (4) Suicidal ideation: Plan This is a 52 year old woman with a history of depression related to significant moments in her life and genetic loading for mental health issues who presents with recent depression and suicidal ideation who arrives here with suicide attempt recently admitted 2 times in last month. 1. Decrease zoloft 25mg daily secondary to side effects. Add Remeron 15mg at night to target depression and anxiety. 2. Encourage individual, group and milieu therapy 3. Continue q-15 minute check for safety 4. Consider adjunctive abilify, rexulti, or seroquel xr, 5. Patient requires psychotherapy. Involuntary Hold Information 96 Hour Hold: 96 Hour Involuntary Admission: No Attestations NPU Medical Necessity Statement*: Inpatient hospitalization is medically necessary and the clinically appropriate intervention at this time. She will be hospitalized for at least 2 midnights. We will monitor medications and make changes as indicated. Likely length of stay is 5-7 days. Coding Level of Care Code Established Pt Acute Code for Chg Fwd Patient Type Established History Problem Focused Exam Problem Focused Medical Decision Making Straight Forward Diagnoses Major depressive disorder F32.9 Generalized anxiety disorder F41.1 HTN (hypertension) I10 Suicidal ideation R45.851
[2022-10-20] MEDS: loperamide 2 mg Capsule PO (20:08)
[2022-10-20] MEDS: metoprolol succinate ER (24 HR) 25 mg Tablet PO (20:09)
[2022-10-20] MEDS: mirtazapine 15 mg Tablet PO (20:09)
[2022-10-20 22:00] VITALS: BP 141/92; PULSE 83; RESP 16; TEMP 36.9; O2SAT 98
[2022-10-21 06:00] VITALS: BP 141/92; PULSE 83; RESP 16; TEMP 36.9; O2SAT 98
[2022-10-21] MEDS: hyDRALAzine 25 mg Tablet PO ×2 (08:51→19:36)
[2022-10-21] MEDS: hydroCHLOROthiazide 25 mg Tablet PO (08:51)
[2022-10-21] MEDS: lisinopril 20 mg Tablet 40 MG PO (08:51)
[2022-10-21] MEDS: amlodipine 10 mg Tablet PO (08:52)
[2022-10-21] MEDS: sertraline 50 mg Tablet 25 MG PO (08:52)
[2022-10-21 14:00] VITALS: BP 117/77; PULSE 88; RESP 18; TEMP 36.6; O2SAT 98
--- NOTE | 2022-10-21 17:03 | P.NPUPN_ITS ---
Subjective NPU Subjective: The patient is a 52-year-old white female admitted with suicidal ideation and a recent suicide attempt after a recent hospitalization 2 weeks ago. Patient was able to attend groups. She continued to report a desire to return home but did acknowledge continuing to feel depressed. She had attempted to minimize the importance of outpatient follow-up. She had reported that she had difficulties with maintenance of compliance with multiple side effects noted on her medications in the past. She did not complain of side effects from her mirtazapine initiated last night. She reported less abdominal discomfort and less problems with loose stools with the reduction in Zoloft today. She reported continued problems with chronic worry. She had been somewhat quiet in groups. She had minimized any thoughts of hurting herself and stated that she continued to feel ashamed for her actions. She had continue to report having problems with communicating her feelings with her . Mental Status Exam MSE Comments: This is an overweight versus obese white female with thinning hair in hospital scrubs with adequate grooming and limited eye contact. No abnormal movements except for severe psychomotor retardation. Cooperative with exam in moderate distress. Speech was normal rate,prosody, and volume. Mood described as depressed. affect remained tearful. Her thought process was linear and organized but superficial today. Thought content: She denied suicidal ideation and denied homicidal ideation. There was no evidence of delusional thinking. She did not appear to be responding to internal stimuli. She was alert and oriented to person place and time. Attention and concentration appeared adequate. Her memory appeared reliable but none were formally tested today. She is alert and oriented times three. Insight was poor. Judgment is poor. Impulse control is poor. Vitals/I&O/Wt Last Vital Signs Temp 98 F 10/21/22 14:00 Pulse 88 10/21/22 14:00 Resp 18 10/21/22 14:00 BP 117/77 10/21/22 14:00 Pulse Ox 98 10/21/22 14:00 O2 Del Method 10/21/22 14:00 Data NPU 10/16/22 11:41 10/16/22 11:41 A&P Assessment and plan (1) Major depressive disorder: (2) Generalized anxiety disorder: (3) HTN (hypertension): (4) Suicidal ideation: Plan This is a 52 year old woman with a history of depression related to significant moments in her life and genetic loading for mental health issues who presents with recent depression and suicidal ideation who arrives here with suicide attempt recently admitted 2 times in last month. 1. Continue zoloft 25mg daily secondary to side effects. Increase Remeron to 22.5 mg at night to target depression and anxiety. 2. Encourage individual, group and milieu therapy 3. Continue q-15 minute check for safety 4. Consider adjunctive abilify, rexulti, or seroquel xr, 5. Patient requires psychotherapy. Involuntary Hold Information 96 Hour Hold: 96 Hour Involuntary Admission: No Attestations NPU 2 Medical Necessity Statement*: Inpatient hospitalization is medically necessary and the clinically appropriate intervention at this time. She will be hospital ized for at least 2 midnights. We will monitor medications and make changes as indicated. Likely length of stay is 5-7 days. Coding Level of Care Code Established Pt Acute Code for Chg Fwd Patient Type Established History Problem Focused Exam Problem Focused Medical Decision Making Straight Forward Diagnoses Major depressive disorder F32.9 Generalized anxiety disorder F41.1 HTN (hypertension) I10 Suicidal ideation R45.851
[2022-10-21] MEDS: hyDROXYzine 25 mg Capsule 50 MG PO (17:15)
[2022-10-21] MEDS: metoprolol succinate ER (24 HR) 25 mg Tablet PO (19:35)
[2022-10-21] MEDS: mirtazapine 15 mg Tablet 22.5 MG PO (19:35)
[2022-10-21 20:21] VITALS: BP 132/74; PULSE 92; RESP 18; TEMP 36.3; O2SAT 98
[2022-10-22 05:40] VITALS: RESP 16
[2022-10-22] MEDS: hydroCHLOROthiazide 25 mg Tablet PO (09:02)
[2022-10-22] MEDS: hyDRALAzine 25 mg Tablet PO ×2 (09:02→20:09)
[2022-10-22] MEDS: amlodipine 10 mg Tablet PO (09:03)
[2022-10-22] MEDS: sertraline 50 mg Tablet 25 MG PO (09:03)
[2022-10-22] MEDS: lisinopril 20 mg Tablet 40 MG PO (09:03)
[2022-10-22] MEDS: hyDROXYzine 25 mg Capsule 50 MG PO (11:52)
[2022-10-22 14:00] VITALS: BP 167/67; PULSE 79; RESP 17; TEMP 36.7; O2SAT 96
--- NOTE | 2022-10-22 16:26 | W.PM.NPUPNS ---
Subjective NPU Subjective: The patient is a 52-year-old white female admitted with suicidal ideation and a recent suicide attempt after a recent hospitalization 2 weeks ago. Patient had not reported side effects from her Remeron last night and stated that her loose stools had appeared to be nonexistent today. She continued to report shame for having attempted suicide. She reported that she had been hopeful about returning home. She reported that she was willing to consider therapy and stated that she would be willing to continue to take her medications. She had reported having a good visit with her but stated that she continued to have a hard time communicating her feelings to him. Patient was able to attend groups. She had described an extended history of sleeping for approximately 3 hours and then awakening at 2:30 AM and continuing to remain awake until 5:30 AM at which time her would go to work and she would eventually drift off to sleep for another 2 hours. The patient had reported feeling more fatigued and endorsed that she had been frequently fatigued throughout much of the day. Mental Status Exam MSE Comments: This is an overweight versus obese white female with thinning hair in hospital scrubs with adequate grooming, pleasant and cooperative with limited eye contact. No abnormal movements except for severe psychomotor retardation. Cooperative with exam in moderate distress. Speech was normal rate,prosody, and volume. Mood described as depressed. affect remained restricted, though some notable signs briefly of being euthymic. Her thought process was linear and organized but superficial today. Thought content: She denied suicidal ideation and denied homicidal ideation. There was no evidence of delusional thinking. She did not appear to be responding to internal stimuli. She was alert and oriented to person place and time. Attention and concentration appeared adequate. Her memory appeared reliable but none were formally tested today. She is alert and oriented times three. Insight was poor. Judgment is poor. Impulse control is poor. Vitals/I&O/Wt Last Vital Signs Temp 97.4 F L 10/21/22 20:21 Pulse 92 10/21/22 20:21 Resp 16 10/22/22 05:40 BP 132/74 10/21/22 20:21 Pulse Ox 98 10/21/22 20:21 O2 Del Method 10/21/22 14:00 Data NPU 10/16/22 11:41 10/16/22 11:41 A&P Assessment and plan (1) Major depressive disorder: (2) Generalized anxiety disorder: (3) HTN (hypertension): (4) Suicidal ideation: Plan This is a 52 year old woman with a history of depression related to significant moments in her life and genetic loading for mental health issues who presents with recent depression and suicidal ideation who arrives here with suicide attempt recently admitted 2 times in last month. 1. Discontinue zoloft and increase remeron to 30mg at night to target depression and anxiety. 2. Encourage individual, group and milieu therapy 3. Continue q-15 minute check for safety 4. Consider adjunctive abilify, rexulti, or seroquel xr, 5. Patient requires psychotherapy. Involuntary Hold Information 96 Hour Hold: 96 Hour Involuntary Admission: No Attestations NPU Medical Necessity Statement*: Inpatient hospitalization is medically necessary and the clinically appropriate intervention at this time. She will be hospitalized for at least 2 midnights. We will monitor medications and make changes as indicated. Likely length of stay is 5-7 days. Coding Level of Care Code Acute Code for [employer] Diagnoses Major depressive disorder F32.9 Generalized anxiety disorder F41.1 HTN (hypertension) I10 Suicidal ideation R45.851
[2022-10-22] MEDS: mirtazapine 15 mg Tablet 22.5 MG PO (20:08)
[2022-10-22] MEDS: metoprolol succinate ER (24 HR) 25 mg Tablet PO (20:08)
[2022-10-22 20:59] VITALS: BP 114/74; PULSE 93; RESP 18; TEMP 36.7; O2SAT 98
[2022-10-23] MEDS: lisinopril 20 mg Tablet 40 MG PO (08:41)
[2022-10-23] MEDS: amlodipine 10 mg Tablet PO (08:41)
[2022-10-23] MEDS: hydroCHLOROthiazide 25 mg Tablet PO (08:42)
[2022-10-23] MEDS: sertraline 50 mg Tablet 25 MG PO (08:42)
[2022-10-23] MEDS: hyDRALAzine 25 mg Tablet PO ×2 (08:43→19:58)
[2022-10-23] MEDS: hyDROXYzine 25 mg Capsule 50 MG PO ×2 (10:30→19:58)
--- NOTE | 2022-10-23 10:30 | PC.NURSE ---
Patient very anxious and pacing hallway. PRN Vistaril 50mg given by mouth at this time.
[2022-10-23] MEDS: acetaminophen 325 mg Tablet 650 MG PO (12:35)
[2022-10-23] MEDS: OLANZapine 5 mg ODT PO (12:50)
--- NOTE | 2022-10-23 12:52 | PC.NURSE ---
Continue to be anxious and agitated;pacing hallway and tearful at times. BP-135/83 P-87 R-22. PRN Zyprexa 5mg given as prescribed. Monitoring.
--- NOTE | 2022-10-23 13:44 | PC.NURSE ---
In room with eyes closed;laying in supine position. No s/sx of resp. distress noted.
[2022-10-23 14:00] VITALS: BP 125/72; PULSE 69; RESP 18; TEMP 36.6; O2SAT 93
--- NOTE | 2022-10-23 14:12 | P.NPUPN_ITS ---
Subjective NPU Subjective: Patient presented today reporting that she is here because tried again. She then began to speak about how she felt being here was not helping and possibly medication was helping but he had no answer for what the right thing to do to avoid continued suicidal behavior. She did talk about needing to pay bills and other superfluous type conversation points. Blood pressure appeared to be under control compared to last visit. Mental Status Exam MSE Comments: This is an overweight versus obese white female with thinning hair in hospital scrubs with adequate grooming, pleasant and cooperative with limited eye contact. No abnormal movements except for decreasing psychomotor retardation. Cooperative with exam in moderate distress. Speech was normal rate,prosody, and volume. Mood described as I do not l know I think I need to go home. affect remained restricted, though some notable signs briefly of being euthymic. Very nonchalant/laissez-faire attitude about the suicidal elephant in the room. Her thought process was linear and organized but superficial today. Thought content: She denied suicidal ideation and denied homicidal ideation. There was no evidence of delusional thinking. She did not appear to be responding to internal stimuli. She was alert and oriented to person place and time. Attention and concentration appeared adequate. Her memory appeared reliable but none were formally tested today. She is alert and oriented times three. Insight was poor. Judgment is poor. Impulse control is poor. Vitals/I&O/Wt Last Vital Signs Temp 98 F 10/23/22 14:00 Pulse 69 10/23/22 14:00 Resp 18 10/23/22 14:00 BP 125/72 10/23/22 14:00 Pulse Ox 93 10/23/22 14:00 O2 Del Method 10/21/22 14:00 Data NPU 10/16/22 11:41 10/16/22 11:41 A&P Assessment and plan (1) Major depressive disorder: (2) Generalized anxiety disorder: (3) HTN (hypertension): (4) Suicidal ideation: Plan This is a 52 year old woman with a history of depression related to significant moments in her life and genetic loading for mental health issues who presents with recent depression and suicidal ideation who arrives here with suicide attempt recently admitted 2 times in last month. 1. Discontinue zoloft and increased remeron to 30mg at night to target depression and anxiety. 2. Encourage individual, group and milieu therapy 3. Continue q-15 minute check for safety 4. Consider adjunctive abilify, rexulti, or seroquel xr, 5. Patient requires psychotherapy. Involuntary Hold Information 96 Hour Hold: 96 Hour Involuntary Admission: No Attestations NPU Medical Necessity Statement*: Inpatient hospitalization is medically necessary and the clinically appropriate intervention at this time. We will monitor medications and make changes as indicated. Likely length of stay is 3-5 days. Coding Level of Care Code Acute Code for [facility] Fwd Diagnoses Major depressive disorder F32.9 Generalized anxiety disorder F41.1 HTN (hypertension) I10 Suicidal ideation R45.855
--- NOTE | 2022-10-23 16:51 | PC.NURSE ---
Resting well in bed with eyes closed. No s/sx resp distress noted. Missed family visit d/t sleeping. Nurse explained to family patient was very tearful and c/o anxiety, and irritability. Prn medication given to aide in complaint.
[2022-10-23] MEDS: metoprolol succinate ER (24 HR) 25 mg Tablet PO (19:58)
[2022-10-23] MEDS: mirtazapine 15 mg Tablet 22.5 MG PO (19:58)
[2022-10-24] MEDS: lisinopril 20 mg Tablet 40 MG PO (09:40)
[2022-10-24] MEDS: hydroCHLOROthiazide 25 mg Tablet PO (09:40)
[2022-10-24] MEDS: hyDRALAzine 25 mg Tablet PO ×2 (09:40→20:57)
[2022-10-24] MEDS: amlodipine 10 mg Tablet PO (09:41)
[2022-10-24] MEDS: diphenhydrAMINE 50 mg Capsule PO (12:21)
[2022-10-24] MEDS: haloperidol 5 mg Tablet PO (12:21)
[2022-10-24] MEDS: LORazepam 2 mg Tablet PO (12:21)
[2022-10-24 14:00] VITALS: BP 123/76; PULSE 101; RESP 18; TEMP 36.6; O2SAT 98
--- NOTE | 2022-10-24 14:56 | P.NPUPN_ITS ---
Subjective NPU Subjective: Patient presented today reporting that she is feeling okay but continued to focus on like to go home. We discussed what appears to be limited insight into the significance of her suicidality and these hospitalizations which never seemed to sink in. Mental Status Exam MSE Comments: This is an overweight versus obese white female with thinning hair in hospital scrubs with adequate grooming, pleasant and cooperative with limited eye contact. No abnormal movements except for decreasing psychomotor retardation. Cooperative with exam in moderate distress. Speech was normal rate,prosody, and volume. Mood described as okay. affect remained restricted, though some notable signs briefly of being euthymic. Very nonchalant/laissez- faire attitude about the suicidal elephant in the room. Her thought process was linear and organized but superficial today. Thought content: She denied suicidal ideation and denied homicidal ideation. There was no evidence of delusional thinking. She did not appear to be responding to internal stimuli. She was alert and oriented to person place and time. Attention and concentration appeared adequate. Her memory appeared reliable but none were formally tested today. She is alert and oriented times three. Insight was poor. Judgment is poor. Impulse control is poor. Vitals/I&O/Wt Last Vital Signs Temp 97.8 F 10/24/22 14:00 Pulse 101 H 10/24/22 14:00 Resp 18 10/24/22 14:00 BP 123/76 10/24/22 14:00 Pulse Ox 98 10/24/22 14:00 O2 Del Method 10/24/22 14:00 Data NPU 10/16/22 11:41 10/16/22 11:41 A&P Assessment and plan (1) Major depressive disorder: (2) Generalized anxiety disorder: (3) HTN (hypertension): (4) Suicidal ideation: Plan This is a 52 year old woman with a history of depression related to significant moments in her life and genetic loading for mental health issues who presents with recent depression and suicidal ideation who arrives here with suicide atte mpt recently admitted 2 times in last month. 1. Discontinued zoloft and increased remeron to 30mg at night to target depression and anxiety. 2. Encourage individual, group and milieu therapy 3. Continue q-15 minute check for safety 4. Consider adjunctive abilify, rexulti, or seroquel xr, 5. Patient requires psychotherapy. Involuntary Hold Information 96 Hour Hold: 96 Hour Involuntary Admission: No Attestations NPU Medical Necessity Statement*: Inpatient hospitalization is medically necessary and the clinically appropriate intervention at this time. We will monitor medications and make changes as indicated. Likely length of stay is 3-5 days. Coding Level of Care Code Acute Code for [facility] Fwd Diagnoses Major depressive disorder F32.9 Generalized anxiety disorder F41.1 HTN (hypertension) I10 Suicidal ideation R45.851
[2022-10-24] MEDS: mirtazapine 15 mg Tablet 22.5 MG PO (20:56)
[2022-10-24] MEDS: metoprolol succinate ER (24 HR) 25 mg Tablet PO (20:57)
[2022-10-25] MEDS: amlodipine 10 mg Tablet PO (08:31)
[2022-10-25] MEDS: lisinopril 20 mg Tablet 40 MG PO (08:31)
[2022-10-25] MEDS: hydroCHLOROthiazide 25 mg Tablet PO (08:31)
--- NOTE | 2022-10-25 12:37 | P.NPUPN_ITS ---
Subjective NPU Subjective: Patient presented today and to have limited appreciation for her circumstance and lacking clarity and being able to explain why she is having suicide attempts but immediately desiring to be home with her family. We talked about still depression and concerns for something else being awry. Discussed the risks, benefits and alternatives of initiating Abilify 5 mg p.o. every morning initially to augment the antidepressant as well as possibly address some occult thought disorder and she understood and agreed to proceed as is documented in this note. Mental Status Exam MSE Comments: This is an overweight versus obese white female with thinning hair in hospital scrubs with adequate grooming, pleasant and cooperative with limited eye contact. No abnormal movements except for decreasing psychomotor retardation. Cooperative with exam in moderate distress. Speech was normal rate,prosody, and volume. Mood described as okay but still wanting to go home affect remained restricted, though some notable signs briefly of being euthymic. Very nonchalant/laissez-faire attitude about the suicidal elephant in the room. Her thought process was linear and organized but superficial today. Thought co ntent: She denied suicidal ideation and denied homicidal ideation. There was no evidence of delusional thinking. She did not appear to be responding to internal stimuli. She was alert and oriented to person place and time. Attention and concentration appeared adequate. Her memory appeared reliable but none were formally tested today. She is alert and oriented times three. Insight was poor. Judgment is poor. Impulse control is poor. Vitals/I&O/Wt Last Vital Signs Temp 97.8 F 10/24/22 14:00 Pulse 101 H 10/24/22 14:00 Resp 18 10/24/22 14:00 BP 123/76 10/24/22 14:00 Pulse Ox 98 10/24/22 14:00 O2 Del Method 10/24/22 14:00 Data NPU 10/16/22 11:41 10/16/22 11:41 A&P Assessment and plan (1) Major depressive disorder: (2) Generalized anxiety disorder: (3) HTN (hypertension): (4) Suicidal ideation: Plan This is a 52 year old woman with a history of depression related to significant moments in her life and genetic loading for mental health issues who presents with recent depression and suicidal ideation who arrives here with suicide attempt recently admitted 2 times in last month. 1. Discontinued zoloft and increased remeron to 30mg at night to target depression and anxiety. 2. Encourage individual, group and milieu therapy 3. Continue q-15 minute check for safety 4. Start Abilify 5 mg p.o. daily adjunctively. 5. Patient requires psychotherapy. 6. Concern exists that this could be a sort of discretion that may portend poorly for possible cognitive impairment/dementia looming. Involuntary Hold Information 96 Hour Hold: 96 Hour Involuntary Admission: No Attestations NPU Medical Necessity Statement*: Inpatient hospitalization is medically necessary and the clinically appropriate intervention at this time. We will monitor medications and make changes as indicated. Likely length of stay is 3-5 days. Coding Level of Care Code Acute Code for [facility] Fwd Diagnoses Major depressive disorder F32.9 Generalized anxiety disorder F41.1 HTN (hypertension) I10 Suicidal ideation R45.850
[2022-10-25] MEDS: ARIPiprazole 10 mg Tablet 5 MG PO (12:56)
[2022-10-25] MEDS: loperamide 2 mg Capsule PO (12:57)
[2022-10-25 14:00] VITALS: BP 130/84; PULSE 95; RESP 18; TEMP 36.4; O2SAT 100
[2022-10-25] MEDS: hyDRALAzine 25 mg Tablet PO ×2 (15:51→20:44)
[2022-10-25] MEDS: metoprolol succinate ER (24 HR) 25 mg Tablet PO (20:44)
[2022-10-25] MEDS: mirtazapine 15 mg Tablet 22.5 MG PO (20:44)
[2022-10-25 22:00] VITALS: BP 130/96; PULSE 108; RESP 18; TEMP 37; O2SAT 95
[2022-10-26] MEDS: lisinopril 20 mg Tablet 40 MG PO (09:38)
[2022-10-26] MEDS: amlodipine 10 mg Tablet PO (09:38)
[2022-10-26] MEDS: ARIPiprazole 10 mg Tablet 5 MG PO (09:38)
[2022-10-26] MEDS: hydroCHLOROthiazide 25 mg Tablet PO (09:38)
[2022-10-26] MEDS: hyDRALAzine 25 mg Tablet PO ×2 (09:38→20:06)
--- NOTE | 2022-10-26 12:59 | W.PM.NPUPNS ---
Subjective NPU Subjective: Patient presented today reporting that she was feeling better. Her family came to visit and also agreed that she was seeming better from the initiation of the Abilify. We would see how she was doing in the morning and consider increasing the Abilify to 10 mg p.o. every morning and also look at discharge in the next 48 hours which made her quite happy. Mental Status Exam MSE Comments: This is an overweight versus obese white female with thinning hair in hospital scrubs with adequate grooming, pleasant and cooperative with limited eye contact. No abnormal movements except for decreasing psychomotor retardation. Cooperative with exam in moderate distress. Speech was normal rate,prosody, and volume. Mood described as better, affect remained restricted but with some improvement/seeming more euthymic. . Her thought process was linear and organized but superficial today. Thought content: She denied suicidal ideation and denied homicidal ideation. There was no evidence of delusional thinking. She did not appear to be responding to internal stimuli. She was alert and oriented to person place and time. Attention and concentration appeared adequate. Her memory appeared reliable but none were formally tested today. She is alert and oriented times three. Insight was limited. Judgment is limited. Impulse control is poor. Vitals/I&O/Wt Last Vital Signs Temp 98.6 F 10/25/22 22:00 Pulse 108 H 10/25/22 22:00 Resp 18 10/25/22 22:00 BP 130/96 10/25/22 22:00 Pulse Ox 95 10/25/22 22:00 O2 Del Method 10/25/22 22:00 Weight last 48 hrs Weight 97.749 kg Data NPU 10/16/22 11:41 10/16/22 11:41 A&P Assessment and plan (1) Major depressive disorder: (2) Generalized anxiety disorder: (3) HTN (hypertension): (4) Suicidal ideation: Plan This is a 52 year old woman with a history of depression related to significant moments in her life and genetic loading for mental health issues who presents with recent depression and suicidal ideation who arrives here with suicide attempt recently admitted 2 times in last month. 1. Discontinued zoloft and increased remeron to 30mg at night to target depression and anxiety. 2. Encourage individual, group and milieu therapy 3. Continue q-15 minute check for safety 4. Start Abilify 5 mg p.o. daily adjunctively. consider 10 mg po qam prior to discharge. 5. Patient requires psychotherapy. 6. Concern exists that this could be a sort of discretion that may portend poorly for possible cognitive impairment/dementia looming. Involuntary Hold Information 96 Hour Hold: 96 Hour Involuntary Admission: No Attestations NPU Medical Necessity Statement*: Inpatient hospitalization is medically necessary and the clinically appropriate intervention at this time. We will monitor medications and make changes as indicated. Likely length of stay is 1-3 days. Coding Level of Care Code Acute Code for Chg Fwd Diagnoses Major depressive disorder F32.9 Generalized anxiety disorder F41.1 HTN (hypertension) I10 Suicidal ideation R45.851
[2022-10-26 14:00] VITALS: BP 122/84; PULSE 98; RESP 18; TEMP 36.6; O2SAT 99
[2022-10-26] MEDS: hyDROXYzine 25 mg Capsule 50 MG PO ×2 (14:38→20:07)
[2022-10-26] MEDS: metoprolol succinate ER (24 HR) 25 mg Tablet PO (20:06)
[2022-10-26] MEDS: mirtazapine 15 mg Tablet 22.5 MG PO (20:06)
[2022-10-26 20:15] VITALS: BP 116/68; PULSE 75; RESP 18; TEMP 36.5; O2SAT 94
[2022-10-27] MEDS: hyDRALAzine 25 mg Tablet PO (08:46)
[2022-10-27] MEDS: hydroCHLOROthiazide 25 mg Tablet PO (08:46)
[2022-10-27] MEDS: lisinopril 20 mg Tablet 40 MG PO (08:47)
[2022-10-27] MEDS: ARIPiprazole 10 mg Tablet 5 MG PO (08:47)
[2022-10-27] MEDS: amlodipine 10 mg Tablet PO (08:47)
--- NOTE | 2022-10-27 12:25 | P.NPUDS_ITS ---
Diagnoses at Discharge Discharge Diagnosis (1) Major depressive disorder: Status: Acute (2) Generalized anxiety disorder: Status: Acute (3) HTN (hypertension): Status: Acute (4) Suicidal ideation: Status: Resolved Reason for Visit Reason for Visit: SI Brief History: History of Present Illness Noy Linares is a 52 year old female who was recently discharged from the neuropsychiatric unit on October 07, 2022. She presented to the emergency department complaining of continued problems with anxiety hypertension and reports that she has had thoughts of hurting herself's since her discharge from the hospital. She states that her had found a tie that was tied like a noose around the house and became concerned about her intention. She continues to report depressed mood, she reports a history of numerous medication trials unsuccessfully and stated that she had recently been evaluated and had been having problems on her antidepressant and it was switched. She reports having chronic problems with her memory and reports having problems with feeling fatigued, with anhedonia, anergia, and low motivation. She has reported having problems with her memory. She endorses having frequent headaches. She denies any auditory or visual hallucinations. She had not been forthcoming on interview with her active problems and did not endorse thoughts of suicide without some particular questioning. She reports no new changes from her previous hospitalization and admission 10 days ago. Previous psychiatric medications: prozac, cymbalta, effexor, Chief Complaint: Psychiatric Symptoms Stated Complaint: MHE Time Seen by Provider: 10/03/22 07:23 Source: patient Mode of arrival: ambulatory History of Present Illness: 52-year-old female presents emergency room complaining of anxiety. She arrives tearful. She was started yesterday I will I believe the Lexapro for anxiety. She took 1 dose last night. She feels frustrated and feels like a failure he has not wanted to engage outside of her house. She feels like she has not done a good job of taking care of her home. She had suicidal thoughts of hanging herself. She not previously been hospitalized. Years ago she was treated for hypertension and anxiety and was on medications but does not recall what they were she stopped them. [place] like she no longer needed them. Her mentioned there is been some other issues with her feeling depressed her parents had in the last couple of years which is very difficult for her. He also mentions several years ago she had a seizure-like activity and sounds like that may have been ultimately thought to be an anxiety attack rather than actual seizure but he is not completely clear. Patient is agreeable to hospitalization if needed. MD complaint: suicidal ideation and feels depressed Onset (ago): week(s) Duration: constant History of same: Yes Relieving factors: none Exacerbating factors: none Associated psychiatric symptoms: depression and suicidal ideation Associated symptoms: Reports depression and suicidal ideation Treatments prior to arrival: none If self harm: admits thoughts of self harm and has plan. The patient was admitted to the neuropsychiatric unit for definitive treatment of those issues. She is currently taking an anti anxiety and her blood pressure medication. She presents today reporting she was feeling ?consumed? and overwhelmed. She has never been psychiatrically hospitalized, has went to [facility] once in her life, and has been on some psychiatric medication. She denies tobacco, alcohol, marijuana or any other illicit drug use. She has never had drug and alcohol treatment or drug and alcohol related charges. She reports she has had similar rough times around when her son was first born over 30 years ago and when she lost both parents in a car accident with symptoms of feelings o f helplessness, hopelessness, worthlessness, problems with sleeping, and suicidal ideation. She endorses worrying about her children and grandchildren in a normal way and denies any issues with social anxiety. She denies any repetitive behaviors. She endorses some symptoms of PTSD. Of her outpatient evaluation from [facility] [place] from 2009 is included below for context and historical data. Psychiatric History: As above. Substance Abuse History: As above. Family History: She reports mental health issues on her father?s side of the family, addiction issues with her brother, and denies any suicide attempts or completions on either side of the family. Developmental History: She denies any issues with her or , learned to walk and talk and met her developmental milestones on time and denies any need for speech therapy, learning support, emotional support or special education classes. Psychosocial History: She reports her parents were together when she was born and remained together until they passed. She had 5 siblings of whom one passed who are products of the same union. She described her childhood as fairly good and denies emotional, physical or sexual abuse. She denies CYS involvement. She denies any other traumatic events. She graduated high school. She endorses being heterosexual with her longest relationship being 34 years. She has been once, has 3 children, has never been in the and endorses being denominational. 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 She currently lives in a house with her . Legal History: Denied. Medical History: She is allergic to penicillin and latex. She denies any medical issues. She is beginning [facility] Hospital Course Hospital Course ?Patient slowly acclimated to the individual, group and milieu therapies provided.? This was a repeat hospitalization from less than a month ago. Elation we added Abilify to her existing regimen. We discontinued Lexapro and started her on Remeron which was increased to 22.5 mg at bedtime. There is significant concern that this might represent a prodrome to dementia versus markie major depression. ? She worked with the treatment team to find appropriate discharge options and follow-up.? She had significant improvement during this admission and she was able to contract for safety, outside of the hospital prior to discharge. During the hospitalization, patient had routine laboratory studies which were within normal limits except for few outliers.? Additionally there was a general medical evaluation which was also within normal limits and revealed no new acute processes. . At the time of discharge, she denied psychosis or lethality.? Mood and anxiety were well managed.? Patient endorsed a plan to avoid all drugs of abuse and follow-up with the aftercare recommendations of the treatment team.? Patient was evaluated and deemed to be absent credible lethality, and was voluntary and no longer wanting inpatient hospitalization, so she was cleared for discharge to be determined by Hospitalist getting blood pressures under control. Involuntary Hold Information 96 Hour Hold: 96 Hour Involuntary Admission: No Mental Status Exam MSE Comments: This is an overweight versus obese white female with thinning hair in hospital scrubs with adequate grooming, pleasant and cooperative with limited eye contact. No abnormal movements except for decreasing psychomotor retardation. Cooperative with exam in moderate distress. Speech was normal rate,prosody, and volume. Mood described as better, affect remained restricted but with some improvement/seeming more euthymic. . Her thought process was linear and organized but superficial today. Thought content: She denied suicidal ideation and denied homicidal ideation. There was no evidence of delusional thinking. She did not appear to be responding to internal stimuli. She was alert and oriented to person place and time. Attention and concentration appeared adequate. Her memory appeared reliable but none were formally tested today. She is alert and oriented times three. Insight was limited. Judgment is limited. Impulse control is poor. Discharge Data Studies Completed and Pending: Laboratory Results WBC 13.1 10^3/uL (4.0 -10.0) H 10/16/22 11:41 RBC 4.97 10^6/uL (4.1 -5.3) 10/16/22 11:41 Hgb 13.6 g/dL (11.5-1 5.3) 10/16/22 11:41 Hct 42.1 % (37.0-47.0 ) 10/16/22 11:41 MCV 84.7 fl (81-99) 10/16/22 11:41 MCH 27.4 pg (28.0-34. 0) L 10/16/22 11:41 MCHC 32.3 g/dL (30.0-3 6.0) 10/16/22 11:41 RDW 15.8 % (12.1-15.1 ) H 10/16/22 11:41 Plt Count 419 10^3/cmm (130 -400) H 10/16/22 11:41 MPV 9.9 fL (7.4-10.4) 10/16/22 11:41 Neut % (Auto) 80.3 % 10/16/22 11:41 Lymph % (Auto) 10.7 % 10/16/22 11:41 [place] % (Auto) 7.0 % 10/16/22 11:41 Eos % (Auto) 1.1 % 10/16/22 11:41 Baso % (Auto) 0.5 % 10/16/22 11:41 Neut # (Auto) 10.47 10^3/uL (1. 8-7.7) H 10/16/22 11:41 Lymph # (Auto) 1.4 10^3/uL (0.8- 4.8) 10/16/22 11:41 [place] # (Auto) 0.9 10^3/uL (0.2- 0.9) 10/16/22 11:41 Eos # (Auto) 0.2 10^3/uL (0.0- 0.8) 10/16/22 11:41 Baso # (Auto) 0.1 10^3/uL (0.0- 0.1) 10/16/22 11:41 Nucleated RBC % (a uto) 0 % 10/16/22 11:41 Nucleated RBCs # 0.0 /100WBC 10/16/22 11:41 Sodium 136 mmol/L (136-1 45) 10/16/22 11:41 Potassium 4.3 mmol/L (3.5-5 .1) 10/16/22 11:41 Chloride 101 mmol/L (98-10 7) 10/16/22 11:41 Carbon Dioxide 22 mmol/L (22-29) 10/16/22 11:41 Anion Gap 17.3 (5-19) 10/16/22 11:41 BUN 16 mg/dL (6-20) 10/16/22 11:41 Creatinine 0.6 mg/dL (0.5-0. 9) 10/16/22 11:41 GFR Calculation 105.0 mL/min (90- 130) 10/16/22 11:41 Glucose 111 mg/dL (65-115 ) 10/16/22 11:41 Calculated Osmolal ity 284 mOsm/kg (285- 295) L 10/16/22 11:41 Calcium 9.5 mg/dL (8.5-10 .5) 10/16/22 11:41 Total Bilirubin 0.3 mg/dL (0.15-1 .2) 10/16/22 11:41 AST 23 U/L (0-32) 10/16/22 11:41 ALT 32 U/L (0-33) 10/16/22 11:41 Alkaline Phosphata se 96 U/L (35-105) 10/16/22 11:41 Total Protein 7.8 g/dL (6.6-8.7 ) 10/16/22 11:41 Albumin 4.3 g/dL (3.5-5.2 ) 10/16/22 11:41 Globulin 3.5 g/dL (1.3-4.6 ) 10/16/22 11:41 TSH 1.08 uIU/mL (0.27 -4.20) 10/16/22 11:41 Urine Color Yellow (Yellow) 10/16/22 11:44 Urine Appearance Clear (CLEAR) 10/16/22 11:44 Urine pH 5 (5-7) 10/16/22 11:44 Ur Specific Gravit y 1.015 (1.005-1.0 30) 10/16/22 11:44 Urine Protein Neg (Negative) 10/16/22 11:44 Urine Glucose (UA) Norm (Normal) 10/16/22 11:44 Urine Ketones Negative (Negati ve) 10/16/22 11:44 Urine Blood Neg (Negative) 10/16/22 11:44 Urine Nitrate Negative (Negati ve) 10/16/22 11:44 Urine Bilirubin Neg (Negative) 10/16/22 11:44 Urine Urobilinogen Neg mg/dL (Negati ve) 10/16/22 11:44 Ur Leukocyte Katherine ase Negative (Negati ve) 10/16/22 11:44 Salicylates < 0.3 mg/dL (3-10 ) L 10/16/22 11:41 Urine Opiates Scre en Negative ng/mL (N egative) 10/16/22 11:44 Acetaminophen < 5.0 ug/mL (10-3 0) L 10/16/22 11:41 Ur Barbiturates Sc reen Negative ng/mL (N egative) 10/16/22 11:44 Ur Phencyclidine S crn Negative ng/mL (N egative) 10/16/22 11:44 Ur Amphetamines Sc reen Negative ng/mL (N egative) 10/16/22 11:44 U Benzodiazepines Scrn Negative ng/mL (N egative) 10/16/22 11:44 Urine Cocaine Scre en Negative ng/mL (N egative) 10/16/22 11:44 U Marijuana (THC) Screen Negative ng/mL (N egative) 10/16/22 11:44 Ethyl Alcohol < 10 mg/dL (0-10) 10/16/22 11:41 Vitals: Last Vital Signs Temp 97.7 F 10/26/22 20:15 Pulse 75 10/26/22 20:15 Resp 18 10/26/22 20:15 BP 116/68 10/26/22 20:15 Pulse Ox 94 10/26/22 20:15 O2 Del Method 10/26/22 14:00 Discharge Plan Discharge Patient Disposition: Home Condition: Stable Prescriptions: New mirtazapine 15 mg Tablet 22.5 mg PO BEDTIME 30 Days Qty: 45 1RF aripiprazole 10 mg Tablet 5 mg PO DAILY 30 Days Qty: 15 1RF Continued hydroxyzine HCl 25 mg tablet 25 mg PO Q8H PRN (Reason: anxiety) Qty: 30 0RF Women's 50 Plus Multivitamin 400 mcg-500 mg calcium-20 mcg Tablet 1 tab PO DAILY BC Pain Relief 845-65 mg Powder In Packet 1 ea PO DAILY PRN (Reason: Headache) metoprolol succinate 25 mg tablet extended release 24 hr 25 mg PO BEDTIME 30 Days Qty: 30 1RF hydrochlorothiazide 25 mg tablet 25 mg PO QAM Qty: 30 3RF lisinopril 20 mg tablet 40 mg PO DAILY Qty: 60 3RF amlodipine 10 mg tablet 10 mg PO DAILY Qty: 30 2RF hydralazine 25 mg tablet 25 mg PO BID Qty: 60 1RF Discontinued sertraline 25 mg tablet 25 mg PO DAILY Discharge Orders: Discharge Order (Routine); Ordered 10/27/22 Ordered By: Chance Long Referrals: [facility] [place] [facility] [Outside] (Walk in for services) Magallon,FRANCES Padilla [Primary Care Provider] - 10/29/22 9:00 am Discharge Diet: Low Salt Discharge Activity: Resume usual activity Patient Instructions: Aripiprazole (By mouth) (Lucy Ayala Discmelt), Depression (DC), Opioid Safety Discharge Attestations NPU Time Spent in Discharge Care*: less than 30 min Specific Discharge Activities: Specific discharge activities: educating patient, discussing with shoe caser/social workers/dc planners, documenting/other paperwork and evaluating patient/reviewing data Coding Level of Care Code Acute Chg FW DC note Diagnoses Major depressive disorder F32.9 Generalized anxiety disorder F41.1 HTN (hypertension) I10 Suicidal ideation R45.858
[2022-10-27 12:46] VITALS: BP 116/68; PULSE 75; RESP 18; TEMP 36.5; O2SAT 94
== END 2022-10-27 14:13 | disposition home or self-care (01) | DRG 881 ==
LOC: ER 12:40 → NP 13:15
PROVIDERS: Admitting Provider Psychiatry & Neurology Psychiatry; Emergency Provider Emergency Medicine; PCP Nurse Practitioner Family; Visit Provider Psychiatry & Neurology Psychiatry
DX: F32.9 Major depressive disorder, single episode, unspecified (principal); R45.851 Suicidal ideations; F41.1 Generalized anxiety disorder; I10 Essential (primary) hypertension; F43.10 Post-traumatic stress disorder, unspecified; Z81.8 Family history of other mental and behavioral disorders; F34.81 Disruptive mood dysregulation disorder
CPT/HCPCS: 80053; 80306; 80307; 81003; 84443; 85025; 96372; 97150; 97165; 99285; J2060; Q0163

== ENCOUNTER 2023-06-22 10:15 | Outpatient (CLI) | payer OTHER, SELFPAY ==
--- NOTE | 2023-06-22 10:21 | MM_ITS ---
WS: [id number] BILATERAL SCREENING DIGITAL TOMOSYNTHESIS MAMMOGRAM WITH CAD HISTORY: SCREENING COMPARISON: None available. Bilateral CC and MLO views with tomosynthesis and synthetic mammography submitted. Computer aided det ection analyzed. Breast composition: The breasts are heterogeneously dense, which may obscure small masses. No suspici ous masses, microcalcifications or architectural distortion. Bilateral breast calcifications. Intrama mmary lymph node LEFT breast. IMPRESSION: MM/[place] [id number] BI-RADS: 2-Benign FOLLOW UP: 1 Year Follow-up
== END 2023-06-22 10:16 | disposition home or self-care (01) ==
PROVIDERS: PCP Nurse Practitioner Family; Visit Provider Nurse Practitioner Family
DX: Z12.31 Encounter for screening mammogram for malignant neoplasm of breast (principal)
CPT/HCPCS: 77063; 77067

== ENCOUNTER → 2023-11-19 08:27 | Outpatient (BNVA) | payer OTHER, SELFPAY | PROVIDERS: PCP Nurse Practitioner Family; Visit Provider Nurse Practitioner Psychiatric/Mental Health | DX: Z79.899 Other long term (current) drug therapy (principal); Z03.89 Encounter for observation for other suspected diseases and conditions ruled out | CPT/HCPCS: 80053; 80061; 82306; 83036 ==

== ENCOUNTER 2024-07-25 12:57 | Outpatient (CLI) | payer OTHER, SELFPAY ==
--- NOTE | 2024-07-25 13:03 | MM_ITS ---
WS: [id number] BILATERAL 3D TOMOSYNTHESIS DIGITAL SCREENING MAMMOGRAPHY WITH CAD CLINICAL INFORMATION: SCREENING HISTORY: Screening mammogram. No current complaints. COMPARISON: 2022 TECHNIQUE: Bilateral CC and MLO views. FINDINGS: Scattered fibroglandular densities bilaterally. No suspicious focal mass, asymmetry, calcifications, or architectural distortion. No evidence of malignancy. A few incidental punctate and lucent centered calcifications. Vascular calcifications. MM/MM scr tomosynthesis [id number] IMPRESSION: DENSITY: There are scattered areas of fibroglandular density. BI-RADS: 2 - Benign. FOLLOW UP: 1 Year Follow-up Recommend return to annual screening mammography.
== END 2024-07-25 12:58 | disposition home or self-care (01) ==
LOC: RAD 12:59
PROVIDERS: PCP Nurse Practitioner Family; Visit Provider Nurse Practitioner Family
DX: Z12.31 Encounter for screening mammogram for malignant neoplasm of breast (principal); R92.323 Mammographic fibroglandular density, bilateral breasts; R92.1 Mammographic calcification found on diagnostic imaging of breast
CPT/HCPCS: 77063; 77067